=== PATIENT | male | born 1940 | race Caucasian/White ===

== ENCOUNTER 2023-03-04 21:23 | Outpatient (CLI) | payer SELFPAY | END 2023-03-04 21:24 | disposition EMS.NT | LOC: EMS 21:23 | DX: R55 Syncope and collapse (principal); R06.00 Dyspnea, unspecified ==

== ENCOUNTER 2025-09-17 18:49 | Inpatient (IN) ==
--- OUTSIDE RECORDS SUMMARY | 2025-09-17 18:59 | EXTERNAL MEDICAL SUMMARY RPT | Continuity of Care Document ---
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 Role Phone Unavailable Unavailable Unavailable Mario Snow Unavailable Unavailable Allergies and Intolerances date description facility reaction severity 2025-07-06 18:17:56 UNK [facility] (no reactio n) (no severity) Medications date description facility 2025-07-10 00:00 Apixaban [facility] 2025-07-12 00:00 Doxycycline Hyclate [facility] ital 2025-07-11 00:00 Furosemide [facility] 2025-07-11 00:00 Tamsulosin [facility] 2025-07-11 00:00 Metoprolol Succinate [facility] Problems date description facility 2025-07-07 00:00 Leukocytosis [facility] 2025-07-07 00:00 Acute hyponatremia [facility] 2025-07-07 00:00 Atrial fibrillation with rapid ventricular response [facility] 2025-07-07 00:00 Urinary tract infection [facility] 2025-07-07 00:00 Generalized weakness [facility] 2025-07-07 09:13 Unspecified atrial fibrillation [facility] 2025-07-07 09:17 Unspecified atrial fibrillation [facility] 2025-07-07 09:36 Unspecified atrial fibrillation [facility] 2025-07-07 09:37 Unspecified atrial fibrillation [facility] 2025-07-07 12:10 Unspecified atrial fibrillation [facility] 2025-07-07 14:23 Unspecified atrial fibrillation [facility] 2025-07-07 14:34 Unspecified atrial fibrillation [facility] 2025-07-08 10:48 Procedure and treatm ent not carried out due to patient leaving prior to being seen by health care provider [facility] 2025-07-09 14:49 Unspecified atrial fibrillation [facility] 2025-07-11 12:48 Unspecified atrial fibrillation [facility] 2025-07-12 13:45 Unspecified atrial fibrillation [facility] 2025-07-13 10:43 Unspecified atrial fibrillation [facility] 2025-08-12 10:21 Unspecified atrial fibrillation [facility] Procedures date description facility 2025-07-06 00:00 Blood culture [facility] 2025-07-06 00:00 X-ray of chest, single view [facility] 2025-07-08 00:00 Complete Doppler echocardiograp hy [facility] Results/Labs test date facility value unit notes Result panel 1 Specimen collection (procedure) (no date) [facility] (missing) (missing) (missing) Result panel 2 Specimen collection (procedure) (no date) [facility] (missing) (missing) (missing) Result panel 3 Specimen collection (procedure) (no date) [facility] (missing) (missing) (missing) Result panel 4 Specimen collection (procedure) (no date) [facility] (missing) (missing) (missing) Result panel 5 Specimen collection (procedure) (no date) [facility] (missing) (missing) (missing) Result panel 6 Specimen collection (procedure) (no date) [facility] (missing) (missing) (missing) Result panel 7 Specimen collection (procedure) (no date) [facility] (missing) (missing) (missing) Result panel 8 Specimen collection (procedure) (no date) [facility] (missing) (missing) (missing) Result panel 9 Specimen collection (procedure) (no date) [facility] (missing) (missing) (missing) Result panel 10 Specimen collection (procedure) (no date) [facility] (missing) (missing) (missing) Result panel 11 Specimen collection (procedure) (no date) [facility] (missing) (missing) (missing) Result panel 12 Specimen collection (procedure) (no date) [facility] (missing) (missing) (missing) Result panel 13 Specimen collection (procedure) (no date) [facility] (missing) (missing) (missing) Result panel 14 Specimen collection (procedure) (no date) [facility] (missing) (missing) (missing) Result panel 15 Specimen collection (procedure) (no date) [facility] (missing) (missing) (missing) Result panel 16 Specimen collection (procedure) (no date) [facility] (missing) (missing) (missing) Result panel 17 Specimen collection (procedure) (no date) [facility] (missing) (missing) (missing) Result panel 18 Specimen collection (procedure) (no date) [facility] (missing) (missing) (missing) Result panel 19 Specimen collection (procedure) (no date) [facility] (missing) (missing) (missing) Result panel 20 Specimen collection (procedure) (no date) [facility] (missing) (missing) (missing) Result panel 21 Specimen collection (procedure) (no date) [facility] (missing) (missing) (missing) Result panel 22 Specimen collection (procedure) (no date) [facility] (missing) (missing) (missing) Result panel 23 Specimen collection (procedure) (no date) [facility] (missing) (missing) (missing) Result panel 24 Specimen collection (procedure) (no date) [facility] (missing) (missing) (missing) Result panel 25 Specimen collection (procedure) (no date) [facility] (missing) (missing) (missing) Result panel 26 Specimen collection (procedure) (no date) [facility] (missing) (missing) (missing) Result panel 27 Specimen collection (procedure) (no date) [facility] (missing) (missing) (missing) Result panel 28 Specimen collection (procedure) (no date) [facility] (missing) (missing) (missing) Result panel 29 Specimen collection (procedure) (no date) [facility] (missing) (missing) (missing) Result panel 30 Specimen collection (procedure) (no date) [facility] (missing) (missing) (missing) Result panel 31 Specimen collection (procedure) (no date) [facility] (missing) (missing) (missing) Result panel 32 Specimen collection (procedure) (no date) [facility] (missing) (missing) (missing) Result panel 33 Specimen collection (procedure) (no date) [facility] (missing) (missing) (missing) Result panel 34 Specimen collection (procedure) (no date) [facility] (missing) (missing) (missing) Result panel 35 Specimen collection (procedure) (no date) [facility] (missing) (missing) (missing) Result panel 36 Specimen collection (procedure) (no date) [facility] (missing) (missing) (missing) Result panel 37 Specimen collection (procedure) (no date) [facility] (missing) (missing) (missing) Result panel 38 Specimen collection (procedure) (no date) [facility] (missing) (missing) (missing) Result panel 39 Specimen collection (procedure) (no date) [facility] (missing) (missing) (missing) Result panel 40 Specimen collection (procedure) (no date) [facility] (missing) (missing) (missing) Result panel 41 Specimen collection (procedure) (no date) [facility] (missing) (missing) (missing) Result panel 42 Specimen collection (procedure) (no date) [facility] (missing) (missing) (missing) Result panel 43 Specimen collection (procedure) (no date) [facility] (missing) (missing) (missing) Result panel 44 Specimen collection (procedure) (no date) [facility] (missing) (missing) (missing) Result panel 45 Specimen collection (procedure) (no date) [facility] (missing) (missing) (missing) Result panel 46 Specimen collection (procedure) (no date) [facility] (missing) (missing) (missing) Result panel 47 Specimen collection (procedure) (no date) [facility] (missing) (missing) (missing) Result panel 48 Specimen collection (procedure) (no date) [facility] (missing) (missing) (missing) Result panel 49 Specimen collection (procedure) (no date) [facility] (missing) (missing) (missing) Result panel 50 Specimen collection (procedure) (no date) [facility] (missing) (missing) (missing) Result panel 51 Specimen collection (procedure) (no date) [facility] (missing) (missing) (missing) Result panel 52 Specimen collection (procedure) (no date) [facility] (missing) (missing) (missing) Result panel 53 Specimen collection (procedure) (no date) [facility] (missing) (missing) (missing) Result panel 54 Specimen collection (procedure) (no date) [facility] (missing) (missing) (missing) Result panel 55 Specimen collection (procedure) (no date) [facility] (missing) (missing) (missing) Result panel 56 Specimen collection (procedure) (no date) [facility] (missing) (missing) (missing) Result panel 57 Specimen collection (procedure) (no date) [facility] (missing) (missing) (missing) Result panel 58 Specimen collection (procedure) (no date) [facility] (missing) (missing) (missing) Result panel 59 Specimen collection (procedure) (no date) [facility] (missing) (missing) (missing) Result panel 60 Specimen collection (procedure) (no date) [facility] (missing) (missing) (missing) Result panel 61 Specimen collection (procedure) (no date) [facility] (missing) (missing) (missing) Result panel 62 Specimen collection (procedure) (no date) [facility] (missing) (missing) (missing) Result panel 63 Specimen collection (procedure) (no date) [facility] (missing) (missing) (missing) Result panel 64 Specimen collection (procedure) (no date) [facility] (missing) (missing) (missing) Result panel 65 Specimen collection (procedure) (no date) [facility] (missing) (missing) (missing) Result panel 66 Specimen collection (procedure) (no date) [facility] (missing) (missing) (missing) Result panel 67 Specimen collection (procedure) (no date) [facility] (missing) (missing) (missing) Result panel 68 Specimen collection (procedure) (no date) [facility] (missing) (missing) (missing) Result panel 69 Specimen collection (procedure) (no date) [facility] (missing) (missing) (missing) Result panel 70 Specimen collection (procedure) (no date) [facility] (missing) (missing) (missing) Result panel 71 Specimen collection (procedure) (no date) [facility] (missing) (missing) (missing) Result panel 72 Specimen collection (procedure) (no date) [facility] (missing) (missing) (missing) Result panel 73 Specimen collection (procedure) (no date) [facility] (missing) (missing) (missing) Result panel 74 Specimen collection (procedure) (no date) [facility] (missing) (missing) (missing) Result panel 75 Specimen collection (procedure) (no date) [facility] (missing) (missing) (missing) Result panel 76 Specimen collection (procedure) (no date) [facility] (missing) (missing) (missing) Result panel 77 Specimen collection (procedure) (no date) [facility] (missing) (missing) (missing) Result panel 78 Specimen collection (procedure) (no date) [facility] (missing) (missing) (missing) Result panel 79 Specimen collection (procedure) (no date) [facility] (missing) (missing) (missing) Result panel 80 Specimen collection (procedure) (no date) [facility] (missing) (missing) (missing) Result panel 81 Specimen collection (procedure) (no date) [facility] (missing) (missing) (missing) Result panel 82 Specimen collection (procedure) (no date) [facility] (missing) (missing) (missing) Result panel 83 Specimen collection (procedure) (no date) [facility] (missing) (missing) (missing) Result panel 84 Specimen collection (procedure) (no date) [facility] (missing) (missing) (missing) Result panel 85 Specimen collection (procedure) (no date) [facility] (missing) (missing) (missing) Result panel 86 Specimen collection (procedure) (no date) [facility] (missing) (missing) (missing) Result panel 87 Specimen collection (procedure) (no date) [facility] (missing) (missing) (missing) Result panel 88 Specimen collection (procedure) (no date) [facility] (missing) (missing) (missing) Result panel 89 Specimen collection (procedure) (no date) [facility] (missing) (missing) (missing) Result panel 90 Specimen collection (procedure) (no date) [facility] (missing) (missing) (missing) Result panel 91 Specimen collection (procedure) (no date) [facility] (missing) (missing) (missing) Result panel 92 Specimen collection (procedure) (no date) [facility] (missing) (missing) (missing) Result panel 93 Specimen collection (procedure) (no date) [facility] (missing) (missing) (missing) Result panel 94 Specimen collection (procedure) (no date) [facility] (missing) (missing) (missing) Result panel 95 Specimen collection (procedure) (no date) [facility] (missing) (missing) (missing) Result panel 96 Specimen collection (procedure) (no date) [facility] (missing) (missing) (missing) Result panel 97 Specimen collection (procedure) (no date) [facility] (missing) (missing) (missing) Result panel 98 Specimen collection (procedure) (no date) [facility] (missing) (missing) (missing) Result panel 99 Specimen collection (procedure) (no date) [facility] (missing) (missing) (missing) Result panel 100 Specimen collection (procedure) (no date) [facility] (missing) (missing) (missing) Result panel 101 Specimen collection (procedure) (no date) [facility] (missing) (missing) (missing) Result panel 102 Specimen collection (procedure) (no date) [facility] (missing) (missing) (missing) Result panel 103 Specimen collection (procedure) (no date) [facility] (missing) (missing) (missing) Result panel 104 Specimen collection (procedure) (no date) [facility] (missing) (missing) (missing) Result panel 105 Specimen collection (procedure) (no date) [facility] (missing) (missing) (missing) Result panel 106 Specimen collection (procedure) (no date) [facility] (missing) (missing) (missing) Result panel 107 Specimen collection (procedure) (no date) [facility] (missing) (missing) (missing) Result panel 108 Specimen collection (procedure) (no date) [facility] (missing) (missing) (missing) Result panel 109 Specimen collection (procedure) (no date) [facility] (missing) (missing) (missing) Result panel 110 Specimen collection (procedure) (no date) [facility] (missing) (missing) (missing) Result panel 111 Specimen collection (procedure) (no date) [facility] (missing) (missing) (missing) Result panel 112 Specimen collection (procedure) (no date) [facility] (missing) (missing) (missing) Result panel 113 Specimen collection (procedure) (no date) [facility] (missing) (missing) (missing) Result panel 114 Specimen collection (procedure) (no date) [facility] (missing) (missing) (missing) Result panel 115 Specimen collection (procedure) (no date) [facility] (missing) (missing) (missing) Result panel 116 Specimen collection (procedure) (no date) [facility] (missing) (missing) (missing) Result panel 117 Specimen collection (procedure) (no date) [facility] (missing) (missing) (missing) Result panel 118 Specimen collection (procedure) (no date) [facility] (missing) (missing) (missing) Result panel 119 Specimen collection (procedure) (no date) [facility] (missing) (missing) (missing) Result panel 120 Specimen collection (procedure) (no date) [facility] (missing) (missing) (missing) Result panel 121 Magnesium [Mass/volume] in Serum or Plasma 2025-07-06 19:06:07 [facility] 1.7 mg[facility] Result panel 122 Bilirubin.total [Mass/volume ] in Serum or Plasma 2025-07-06 19:06:07 [facility] 2.2 mg/dL (missing) Result panel 123 Aspartate aminotransferase [Enzymatic activity/volume] in Serum or Plasma 2025-07-06 19:06:07 [facility] 43 IU/L [facility] Result panel 124 Alanine aminotransferase [Enzymatic activity/volume] in Serum or Plasma 2025-07-06 19:06:07 [facility] 15 IU/L [facility] Result panel 125 Alkaline phosphatase [Enzyma tic activity/volume] in Serum or Plasma 2025-07-06 19:06:07 [facility] 94 U/L ([facility]) Result panel 126 Protein total ser/plas 2025-07-06 19:06:07 [facility] 7 .7 g/dL (missing) Result panel 127 Albumin [Mass/volume] in Ser um or Plasma 2025-07-06 19:06:07 [facility] 4.1 g/dL ([facility]) Result panel 128 Globulin [Mass/volume] in Serum by calculation 2025-07-06 19:06:07 [facility] 3.6 g/dL (missing) Result panel 129 Albumin/Globulin [Mass Ratio] in Serum or Plasma 2025-07-06 19:06:07 [facility] 1.1 ([facility]) (missing) Result panel 130 Lipase [Enzymatic activity/volume] in Serum or Plasma 2025-07-06 19:06:07 [facility] 29 U/L ([facility]) Result panel 131 Influenza virus A RNA [Presence] in Upper respiratory specimen by RASHIDA with probe dete 2025-07-06 19:06:07 [facility] Flu a negative (missing) (missing) Result panel 132 Influenza virus B RNA [Presence] in Upper respiratory specimen by RASHIDA with probe dete 2025-07-06 19:06:07 [facility] Flu b negative (missing) (missing) Result panel 133 Respiratory syncytial virus RNA [Presence] in Nasopharynx by RASHIDA with probe detection 2025-07-06 19:06:07 [facility] Negative (missing) (missing) Result panel 134 White blood cell count 2025-07-06 19:06:07 [facility] 1 3.7 X10^3/uL (missing) Result panel 135 Red blood cell count 2025-07-06 19:06:07 [facility] 4.5 7 X10^6/uL (missing) Result panel 136 Hemoglobin 2025-07-06 19:06:07 [facility] 12.5 g/d L (missing) Result panel 137 Hematocrit 2025-07-06 19:06:07 [facility] 37.4 % (missing) Result panel 138 MCV (mean corpuscular volume ) determination 2025-07-06 19:06:07 [facility] 81.8 fL (mis sing) Result panel 139 Mean corpuscular hemoglobin (MCH) determination 2025-07-06 19:06:07 [facility] 27.4 PG (missing) Result panel 140 Mean corpuscular hemoglobin concentration (MCHC) determination 2025-07-06 19:06:07 [facility] 33.5 % (mis sing) Result panel 141 Red cell distribution width determination 2025-07-06 19:06:07 [facility] 21.4 % (mis sing) Result panel 142 Platelet count 2025-07-06 19:06:07 [facility] TNP (missing) (missing) Result panel 143 Automated neutrophil % 2025-07-06 19:06:07 [facility] 8 5.4 % (missing) Result panel 144 Automated lymphocyte % 2025-07-06 19:06:07 [facility] 5 .1 % (missing) Result panel 145 Automated monocyte % 2025-07-06 19:06:07 [facility] 9.3 % (missing) Result panel 146 Automated eosinophil % 2025-07-06 19:06:07 [facility] 0 .0 % (missing) Result panel 147 Automated basophil % 2025-07-06 19:06:07 [facility] 0.2 % (missing) Result panel 148 Absolute neutrophil count 2025-07-06 19:06:07 [facility] l 87494 /uL (missing) Result panel 149 Absolute lymphocyte count 2025-07-06 [facility] ([facility] Result panel 150 Automated blood monocyte count 2025-07-06 19:06:07 [facility] 1300 /uL (missing) Result panel 151 Automated eosinophil count 2025-07-06 [facility]:06[facility] ([facility] Result panel 152 Automated basophil count 2025-07-06 19:06:07 [facility] 0 /uL (missing) Result panel 153 Platelet estimate 2025-07-06 19:06:07 [facility] Adequate on smear (missing) (missing) Result panel 154 RBC morphology 2025-07-06 19:06:07 [facility] See below (missing) (missing) Result panel 155 Blood anisocytosis detection 2025-07-06 19:06:07 [facility] 2+ (missing) (miss ing) Result panel 156 Sodium [Moles/volume] in Serum or Plasma 2025-07-06 19:06:07 [facility] 125 mmol/L (m issing) Result panel 157 Potassium [Moles/volume] in Serum or Plasma 2025-07-06 19:06:07 [facility] 4.2 mmol/L ([facility]) Result panel 158 Chloride [Moles/volume] in Serum or Plasma 2025-07-06 19:06:07 [facility] 99 mmol/L ([facility] Result panel 159 Carbon dioxide, total [Moles/volume] in Serum or Plasma 2025-07-06 19:06:07 [facility] 17 mmol/L ([facility]) Result panel 160 Urea nitrogen [Mass/volume] in Serum or Plasma 2025-07-06 19:06:07 [facility] 26 mg/dL ([facility] Result panel 161 Creatinine [Mass/volume] in Serum or Plasma 2025-07-06 19:06:07 [facility] 1.21 mg/dL ([facility]) Result panel 162 Glomerular filtration rate (GFR) estimation 2025-07-06 19:06:07 [facility] 59 mL/min ( missing) Result panel 163 BUN/creatinine ratio 2025-07-06 19:06:07 [facility] 21. 5 (missing) (missing) Result panel 164 Glucose [Mass/volume] in Serum or Plasma 2025-07-06 19:06:07 [facility] 120 mg/dL ([facility]) Result panel 165 Calcium [Mass/volume] in Serum or Plasma 2025-07-06 19:06:07 [facility] 10.0 mg/dL ([facility]) Result panel 166 Magnesium [Mass/volume] in Serum or Plasma 2025-07-06 19:06:07 [facility] 1.7 mg/dL ([facility]) Result panel 167 Bilirubin.total [Mass/volume ] in Serum or Plasma 2025-07-06 19:06:07 [facility] 2.2 mg/dL (missing) Result panel 168 Aspartate aminotransferase [Enzymatic activity/volume] in Serum or Plasma 2025-07-06 19:06:07 [facility] 43 IU/L ([facility] Result panel 169 Alanine aminotransferase [Enzymatic activity/volume] in Serum or Plasma 2025-07-06 19:06:07 [facility] 15 IU/L ([facility] Result panel 170 Alkaline phosphatase [Enzyma tic activity/volume] in Serum or Plasma 2025-07-06 19:06:07 [facility] 94 U/L ([facility]) Result panel 171 Protein total ser/plas 2025-07-06 19:06:07 [facility] 7 .7 g/dL (missing) Result panel 172 Albumin [Mass/volume] in Ser um or Plasma 2025-07-06 19:06:07 [facility] 4.1 g/dL ([facility]) Result panel 173 Globulin [Mass/volume] in Serum by calculation 2025-07-06 19:06:07 [facility] 3.6 g/dL (missing) Result panel 174 Albumin/Globulin [Mass Ratio] in Serum or Plasma 2025-07-06 19:06:07 [facility] 1.1 ([facility]) (missing) Result panel 175 Lipase [Enzymatic activity/volume] in Serum or Plasma 2025-07-06 19:06:07 [facility] 29 U/L ([facility]) Result panel 176 Influenza virus A RNA [Presence] in Upper respiratory specimen by RASHIDA with probe dete 2025-07-06 19:06:07 [facility] Flu a negative (missing) (missing) Result panel 177 Influenza virus B RNA [Presence] in Upper respiratory specimen by RASHIDA with probe dete 2025-07-06 19:06:07 [facility] Flu b negative (missing) (missing) Result panel 178 Respiratory syncytial virus RNA [Presence] in Nasopharynx by RASHIDA with probe detection 2025-07-06 19:06:07 [facility] Negative (missing) (missing) Result panel 179 Albumin Globulin Ratio 2025-07-06 19:42 [facility] 1.1 (missing) (missing) Creatinine 2025-07-06 19:42 [facility] 1.21 mg/dl (missing) Calcium 2025-07-06 19:[address] [place] [address] 10.0 mg/dl (missing) Glucose 2025-07-06 19:42 [facility] 120 mg/dl (missing) Sodium 2025-07-06 19:42 [facility] 125 mmol/l (missing) Alanine Aminotransferase 2025-07-06 19:[address] [place] [address] 15 iu/l (missing) Carbon Dioxide 2025-07-06 19:[address] [place] [address] 17 mmol/l (missing) Bilirubin Total 2025-07-06 19:42 [facility] 2.2 mg/dl (missing) BUN Creatinine Ratio 2025-07-06 19:[address] [place] [address] 21.5 (missing) (missing) Blood Urea Nitrogen 2025-07-06 19:42 [facility] 26 mg/dl (missing) Lipase 2025-07-06 19:42 [facility] 29 u/l (missing) Globulin 2025-07-06 19:42 [facility] 3.6 g/dl (missing) Albumin 2025-07-06 19:42 [facility] 4.1 g/dl (missing) Potassium 2025-07-06 19:42 [facility] 4.2 mmol/l (missing) Aspartate Aminotransferase 2025-07-06 19:42 [facility] 43 iu/l (missing) Estimated Glomerular Filt Rate 2025-07-06 19:42 [facility] 59 ml/min Reported eGFR is based the CKD-EPI 2020 equation that does not use a race coefficient. An eGFR below 60 mL/min/1.73m2 suggests that some kidney damage has occurred, and indicative of chronic kidney disease if persisting greater than 3 months. An eGFR less than 15 is indicative of kidney failure. Total Protein 2025-07-06 19:42 [facility] 7.7 g/dl (missing) Alkaline Phosphatase 2025-07-06 19:42 [facility] 94 u/l (missing) Chloride 2025-07-06 19:42 [facility] 99 mmol/l (missing) Result panel 180 Basophils Absolute Auto 2025-07-06 19:47 [facility] 0 /ul (missing) Eosinophils Absolute Auto 2025-07-06 19:47 [facility] 0 /ul (missing) Eosinophils Percent Auto 2025-07-06 19:47 [facility] 0.0 % (missing) Basophils Percent Auto 2025-07-06 19:47 [facility] 0.2 % (missing) Neutrophils Absolute Auto 2025-07-06 19:47 [facility] [address] /ul (missing) Hemoglobin 2025-07-06 19:47 [facility] 12.5 g/dl (missing) White Blood Cell Count 2025-07-06 19:47 [facility] 13.7 x10 3/ul (missing) Monocytes Absolute Auto 2025-07-06 19:47 [facility] 1300 /ul (missing) Red Cell Distribution Width 2025-07-06 19:47 [facility] 21.4 % (missing) Mean Corpuscular Hemoglobin 2025-07-06 19:47 [facility] 27.4 pg (missing) Mean Corpuscular HGB Conc 2025-07-06 19:47 [facility] 33.5 % (missing) Hematocrit 2025-07-06 19:[address] [place] [address] 37.4 % (missing) Red Blood Cell Count 2025-07-06 19:47 [facility] 4.57 x10 6/ul (missing) Lymphocytes Percent Auto 2025-07-06 19:47 [facility] 5.1 % (missing) Lymphocytes Absolute Auto 2025-07-06 19:47 [facility] 700 /ul (missing) Mean Corpuscular Volume 2025-07-06 19:47 [facility] 81.8 fl (missing) Neutrophils Percent Auto 2025-07-06 19:47 [facility] 85.4 % (missing) Monocytes Percent Auto 2025-07-06 19:47 [facility] 9.3 % (missing) Platelet Count 2025-07-06 19:47 [facility] Test not performed x10 3/ul PLATELETS CLUMPED WITH FIBRIN STRANDS PRESENT, SLIDE REVIEW REFLECTS ADEQUATE QUANTITY. Result panel 181 Basophils Absolute Auto 2025-07-06 19:48 [facility] 0 /ul (missing) Eosinophils Absolute Auto 2025-07-06 19:48 [facility] 0 /ul (missing) Eosinophils Percent Auto 2025-07-06 19:48 [facility] 0.0 % (missing) Basophils Percent Auto 2025-07-06 19:48 [facility] 0.2 % (missing) Neutrophils Absolute Auto 2025-07-06 19:48 [facility] [address] /ul (missing) Hemoglobin 2025-07-06 19:48 [facility] 12.5 g/dl (missing) White Blood Cell Count 2025-07-06 19:48 [facility] 13.7 x10 3/ul (missing) Monocytes Absolute Auto 2025-07-06 19:48 [facility] 1300 /ul (missing) Anisocytosis 2025-07-06 19:48 [facility] 2 (missing ) (missing) Red Cell Distribution Width 2025-07-06 19:48 [facility] 21.4 % (missing) Mean Corpuscular Hemoglobin 2025-07-06 19:48 [facility] 27.4 pg (missing) Mean Corpuscular HGB Conc 2025-07-06 19:48 [facility] 33.5 % (missing) Hematocrit 2025-07-06 19:48 [facility] 37.4 % (missing) Red Blood Cell Count 2025-07-06 19:48 [facility] 4.57 x10 6/ul (missing) Lymphocytes Percent Auto 2025-07-06 19:48 [facility] 5.1 % (missing) Lymphocytes Absolute Auto 2025-07-06 19:48 [facility] 700 /ul (missing) Mean Corpuscular Volume 2025-07-06 19:48 [facility] 81.8 fl (missing) Neutrophils Percent Auto 2025-07-06 19:48 [facility] 85.4 % (missing) Monocytes Percent Auto 2025-07-06 19:48 [facility] 9.3 % (missing) Platelet Estimate 2025-07-06 19:48 [facility] Adequate on smear (missing ) (missing) RBC Morphology 2025-07-06 19:48 [facility] See Below (missing ) (missing) Platelet Count 2025-07-06 19:48 [facility] Test not performed x10 3/ul PLATELETS CLUMPED WITH FIBRIN STRANDS PRESENT, SLIDE REVIEW REFLECTS ADEQUATE QUANTITY. Result panel 182 Influenza A - CEPHEID 2025-07-06 20:17 [facility] Flu A NEGATIVE (missing) (missing) Influenza B - CEPHEID 2025-07-06 20:17 [facility] Flu B NEGATIVE (missing) (missing) Respiratory Syncytial Virus 2025-07-06 20:17 [facility] Negative (missing) (missing) COVID-19 CEPHEID 4-PLEX PCR 2025-07-06 20:[address] [place] [address] Negative (missing) The Xpert Xpress SARS-CoV-2 test is a rapid, real-time RT-PCR test intended for the qualitative detection of nucleic acid from the SARS-CoV-2 in either nasopharyngeal, nasal, or mid-turbinate swab and/or nasal wash/ aspirate specimens collected from individuals suspected of COVID-19 by their healthcare provider. Results are for the detection of SARS-CoV-2 RNA. The SARS-CoV-2 RNA is generally detectable in upper respiratory specimens during the acute phase of infection. Positive results are indicative of active infection with SARS-CoV-2; clinical correlation with patient history and other diagnostic information is necessary to determine patient infection status. Positive results do not rule out bacterial infection or co-infection with other viruses. The agent detected may not be the definite cause of disease. Negative results do not preclude SARS-CoV-2 infection and should not be used as the sole basis for treatment or other patient management decisions. Negative results must be combined with clinical observations, patient history, and epidemiological information. The Xpert Xpress SARS-CoV-2 test is only for use under the Food and Drug Administrations Emergency Use Authorization. Result panel 183 Natriuretic peptide.B prohormone N-Terminal [Mass/volume] in Serum or Plasma 2025-07-06 21:22:07 [facility] 5480 pg/mL (miss ing) Result panel 184 Natriuretic peptide.B prohormone N-Terminal [Mass/volume] in Serum or Plasma 2025-07-06 21:22:07 [facility] 5480 pg/mL (miss ing) Result panel 185 Magnesium 2025-07-06 21:33 [facility] 1.7 mg/dl (missing) Result panel 186 Microscopic analysis of urine for red blood cells (RBC) 2025-07-06 21:50:07 [facility] 1-5/hpf (missing) (missing) Result panel 187 Microscopic analysis of urine for white blood cells (WBC) 2025-07-06 21:50:07 [facility] 30-100/hpf (missing) (missing) Result panel 188 Urine squamous epithelial cell detection 2025-07-06 21:50:07 [facility] 0-1 /hpf (missing) (miss ing) Result panel 189 Microscopic analysis of urine for red blood cells (RBC) 2025-07-06 21:50:07 [facility] 1-5/hpf (missing) (missing) Result panel 190 Microscopic analysis of urine for white blood cells (WBC) 2025-07-06 21:50:07 [facility] 30-100/hpf (missing) (missing) Result panel 191 Urine squamous epithelial cell detection 2025-07-06 21:50:07 [facility] 0-1 /hpf (missing) (miss ing) Result panel 192 Procalcitonin [Mass/volume] in Serum or Plasma 2025-07-06 22:04:07 [facility] 0.642 ng/mL (missing) Result panel 193 Troponin I.cardiac [Mass/volume] in Serum or Plasma 2025-07-06 22:04:07 [facility] 0.057 ng/mL (miss ing) Result panel 194 C reactive protein [Mass/volume] in Serum or Plasma 2025-07-06 22:04:07 [facility] 7.1 mg/dL (miss ing) Result panel 195 Procalcitonin [Mass/volume] in Serum or Plasma 2025-07-06 22:04:07 [facility] 0.642 ng/mL (missing) Result panel 196 Squamous Epithelial Cell Urine 2025-07-06 22:13 [facility] 0-1 /HPF (missing) (missing) RBC Urine 2025-07-06 22:13 [facility] 1-5/HPF (missing) (missing) Urine Volume 2025-07-06 22:13 [facility] 10mL (spun) (missing) Urine Source: Urine, Random Culture if Indicated? Y WBC Urine 2025-07-06 22:13 [facility] 30-100/HPF (missing) (missing) Bacteria Urine 2025-07-06 22:13 [facility] Many (>30) (missing) (missing) Culture Indicated Urine 2025-07-06 22:13 [facility] Specimen Cultured (missing) (missing) Result panel 197 Troponin I 2025-07-06:18 [facility] 0.062 ng/ml Ortho Troponin-I Recommended Upper Reference Range & Cutoff The 99th Percentile URL: 0.034 ng/mL AMI Diagnostic Cutoff: 0.120 ng/mL NT-proBNP (BNP-Adult 18+) 2025-07-06 22:18 [facility] 5480 pg/ml The f taoing cut-points have been suggested for the use of proBNP for the diagnostic evaluation of heart failure (HF) in patients with acute dyspnea: Modality Age in Years Optimal Cut-Off -------- Heart Failure Unlikely: Exclusion Age Independent 300 pg/mL Heart Failure Likely: Diagnostic <50 450 pg/mL 50-75 900 pg/mL >75 1800 pg/mL The 300 pg/mL age-independent rule-out cutoff can be used to identify ED patients in whom HF (heart failuire) is unlikely and who need further investigations for non-cardiac causes of dyspnea. The natriuretic peptides values increase with age, therefore, applying age-dependent rule-in cutoffs (450, 900, and 1800 pg/mL) increases the specificity and positive predictive value for diagnosing patients in whom HF is likely. As mild natriuretic peptides elevations can be caused by non-HF conditions, VITROS NT-proBNP II test results between the exclusion and the diagnosis cutoffs should be considered in the context of the clinical presentation and physical examination in order to correctly identify or exclude HF. Result panel 198 Lactate (Lactic Acid) 2025-07-06 22:26 [facility] 2.1 mmol/l Yes/No query for Sepsis Lactate Rule Y Result panel 199 C-Reactive Protein Quant 2025-07-06 22:36 [facility] 7. 1 mg/dl (missing) Result panel 200 X-ray report 2025-07-06 22:49 [facility] (missing) (mis sing) (missing) Result panel 201 X-ray report 2025-07-06 22:49 [facility] (missing) (mis sing) (missing) Result panel 202 Blood culture 2025-07-06 22:58:07 [facility] NO G ROWTH AFTER 5 DAYS (missing) (missing) Result panel 203 Blood culture 2025-07-06 23:00:07 [facility] NO G ROWTH AFTER 5 DAYS (missing) (missing) Result panel 204 Troponin I 2025-07-06 23:01 [facility] 0.057 ng/ml Ortho Troponin-I Recommended Upper Reference Range & Cutoff The 99th Percentile URL: 0.034 ng/mL AMI Diagnostic Cutoff: 0.120 ng/mL Procalcitonin 2025-07-06 23:01 [facility] 0.642 ng/ ml <0.5 ng/mL Systemic infection (sepsis) not likely >0.5- <2.0 ng/mL Systemic infection possible and should be correlated with patient's clinical condition. >2.0 - <10.0 ng/mL Systemic infection is likely. High risk for progression to sever sepsis/ or septic shock. >10.0 ng/mL Important systemic inflammoratory response, almost exclusively due to severe bacterial sepsis or septic shock. Lower Respiratory Tract Infection: <0.1 ng/mL Indicates absence of bacterial infection. >=0.1- <0.25 ng/mL Bacterial infection unlikely >=0.25- <0.5 ng/mL Bacterial infection possible >=0.5 ng/mL Suggests the presence of bacterial infection. Neonates <48 hours old have increased PCT levels without corresponding to sepsis. Result panel 205 Lactate [Mass/volume] in Serum or Plasma 2025-07-06 23:30:07 [facility] 1.1 mmol/L (m issing) Result panel 206 Lactate [Mass/volume] in Serum or Plasma 2025-07-06 23:30:07 [facility] 1.1 mmol/L (m issing) Result panel 207 Lactate 2HR (Lactic Acid Rflx) 2025-07-07 00:01 [facility] 1.1 mmol/l (missing) Result panel 208 Emergency department note 2025-07-07 00:14 [facility] (missing) (missing) (missing ) Result panel 209 Emergency department note 2025-07-07 00:14 [facility] (missing) (missing) (missing ) Result panel 210 Troponin I 2025-07-07 07:40 [facility] 0.072 ng/ml Ortho Troponin-I Recommended Upper Reference Range & Cutoff The 99th Percentile URL: 0.034 ng/mL AMI Diagnostic Cutoff: 0.120 ng/mL Result panel 211 Troponin I.cardiac [Mass/volume] in Serum or Plasma 2025-07-07 10:05:07 [facility] 0.060 ng/mL (miss ing) Result panel 212 Troponin I 2025-07-07 10:47 [facility] 0.060 ng/ml Ortho Troponin-I Recommended Upper Reference Range & Cutoff The 99th Percentile URL: 0.034 ng/mL AMI Diagnostic Cutoff: 0.120 ng/mL Result panel 213 Blood Culture 2025-07-07 23:10 [facility] (missing) (de ssing) (missing) Blood Culture 2025-07-07 23:10 [facility] NO GROW TH AFTER 24 HOURS (missing) (missing) Result panel 214 Blood Culture 2025-07-07 23:12 [facility] (missing) (de ssing) (missing) Blood Culture 2025-07-07 23:12 [facility] NO GROW TH AFTER 24 HOURS (missing) (missing) Result panel 215 Platelet estimate 2025-07-08 04:33:07 [facility] Adequate on smear (missing) (missing) Result panel 216 RBC morphology 2025-07-08 04:33:07 [facility] See below (missing) (missing) Result panel 217 Blood anisocytosis detection 2025-07-08 04:33:07 [facility] 2+ (missing) (miss ing) Result panel 218 Macrocytes detection 2025-07-08 04:33:07 [facility] 1+ (missing) (missing) Result panel 219 Prostate specific Ag [Mass/volume] in Serum or Plasma 2025-07-08 04:33:07 [facility] 0.957 ng/mL (miss ing) Result panel 220 Basophils Percent Auto 2025-07-08 06:00 [facility] 0.5 % (missing) Eosinophils Percent Auto 2025-07-08 06:00 [facility] 0. 6 % (missing) White Blood Cell Count 2025-07-08 06:00 [facility] 10.3 x10 3/ul (missing) Basophils Absolute Auto 2025-07-08 06:00 [facility] 100 /ul (missing) Eosinophils Absolute Auto 2025-07-08 06:00 [facility] 1 00 /ul (missing) Hemoglobin 2025-07-08 06:00 [facility] 11.6 g/dl (missing) Monocytes Percent Auto 2025-07-08 06:00 [facility] 12.7 % (missing) Monocytes Absolute Auto 2025-07-08 06:00 [facility] 130 0 /ul (missing) Red Cell Distribution Width 2025-07-08 06:00 [facility] 21.5 % (missing) Platelet Count 2025-07-08 06:00 [facility] 232 x1 0 3/ul (missing) Mean Corpuscular Hemoglobin 2025-07-08 06:00 [facility] 27.5 pg (missing) Mean Corpuscular HGB Conc 2025-07-08 06:00 [facility] 3 4.0 % (missing) Hematocrit 2025-07-08 06:00 [facility] 34.1 % (missing) Red Blood Cell Count 2025-07-08 06:00 [facility] 4.21 x10 6/ul (missing) Neutrophils Percent Auto 2025-07-08 06:00 [facility] 77 .9 % (missing) Lymphocytes Percent Auto 2025-07-08 06:00 [facility] 8. 3 % (missing) Lymphocytes Absolute Auto 2025-07-08 06:00 [facility] 8 00 /ul (missing) Neutrophils Absolute Auto 2025-07-08 06:00 [facility] 8 000 /ul (missing) Mean Corpuscular Volume 2025-07-08 06:00 [facility] 81. 0 fl (missing) Result panel 221 Creatinine 2025-07-08 06:05 [facility] 1.36 mg/dl (missing) Glucose 2025-07-08 06:05 [facility] 124 mg/dl (missing) Sodium 2025-07-08 06:05 [facility] 126 mmol/l (missing) Carbon Dioxide 2025-07-08 06:05 [facility] 20 mm ol/l (missing) BUN Creatinine Ratio 2025-07-08 06:05 [facility] 22.1 (missing) (missing ) Potassium 2025-07-08 06:05 [facility] 3.6 mmol/l (missing) Blood Urea Nitrogen 2025-07-08 06:05 [facility] 30 mg/dl (missing) Estimated Glomerular Filt Rate 2025-07-08 06:05 [facility] 50 ml/min Reported eGFR is based the CKD-EPI 2020 equation that does not use a race coefficient. An eGFR below 60 mL/min/1.73m2 suggests that some kidney damage has occurred, and indicative of chronic kidney disease if persisting greater than 3 months. An eGFR less than 15 is indicative of kidney failure. Calcium 2025-07-08 06:05 [facility] 9.1 mg/dl (missing) Chloride 2025-07-08 06:05 [facility] 98 mmol/l (missing) Result panel 222 C-Reactive Protein Quant 2025-07-08 06:20 [facility] 10 .9 mg/dl (missing) Result panel 223 Basophils Percent Auto 2025-07-08 06:22 [facility] 0.5 % (missing ) Eosinophils Percent Auto 2025-07-08 06:22 [facility] 0.6 % (missing ) Macrocytosis 2025-07-08 06:22 [facility] 1 (mis sing) (missing) Microcytosis 2025-07-08 06:22 [facility] 1 (mis sing) (missing) White Blood Cell Count 2025-07-08 06:22 [facility] 10.3 x10 3/ul (missing ) Basophils Absolute Auto 2025-07-08 06:22 [facility] 100 /ul (missing ) Eosinophils Absolute Auto 2025-07-08 06:22 [facility] 100 /ul (missin g) Hemoglobin 2025-07-08 06:22 [facility] 11.6 g/dl (missing) Monocytes Percent Auto 2025-07-08:22 [facility] 12.7 % (missing ) Monocytes Absolute Auto 2025-07-08:22 [facility] 1300 /ul (missing ) Anisocytosis 2025-07-08 06:22 [facility] 2 (mis sing) (missing) Red Cell Distribution Width 2025-07-08 06:22 [facility] 21.5 % (m issing) Platelet Count 2025-07-08 06:22 [facility] 232 x1 0 3/ul (missing) Mean Corpuscular Hemoglobin 2025-07-08 06:22 [facility] 27.5 pg (missing ) Mean Corpuscular HGB Conc 2025-07-08 06:22 [facility] 34.0 % (missing ) Hematocrit 2025-07-08 06:22 [facility] 34.1 % (missing) Red Blood Cell Count 2025-07-08 06:22 [facility] 4.21 x10 6/ul (missing ) Neutrophils Percent Auto 2025-07-08 06:22 [facility] 77.9 % (missing ) Lymphocytes Percent Auto 2025-07-08 06:22 [facility] 8.3 % (missing ) Lymphocytes Absolute Auto 2025-07-08 06:22 [facility] 800 /ul (missin g) Neutrophils Absolute Auto 2025-07-08 06:22 [facility] 8000 /ul (missin g) Mean Corpuscular Volume 2025-07-08 06:22 [facility] 81.0 fl (missing ) Platelet Estimate 2025-07-08 06:22 [facility] [place] quate on smear (missing) (missing) RBC Morphology 2025-07-08 06:22 [facility] See Below (m issing) (missing) Result panel 224 Prostate Specific Antigen 2025-07-08 06:34 [facility] 0 .957 ng/ml (missing) Result panel 225 [place] Count 2025-07-08 07:27 [facility] >100,000 cfu/ml (missing) ORGANISM 2025-07-08 07:27 [facility] GNBGram negative bacilli (missing) (missing) Action to follow 2025-07-08 07:27 [facility] Identification and Sensitivity to Follow (missing) (missing) Result panel 226 Echocardiography report 2025-07-08 10:36 [facility] (mi ssing) (missing) (missing) Result panel 227 Blood Culture 2025-07-08 23:10 [facility] (missing) (mi ssing) (missing) Blood Culture 2025-07-08 23:10 [facility] NO GROW TH AFTER 48 HOURS (missing) (missing) Result panel 228 Blood Culture 2025-07-08 23:12 [facility] (missing) (mi ssing) (missing) Blood Culture 2025-07-08 23:12 [facility] NO GROW TH AFTER 48 HOURS (missing) (missing) Result panel 229 Urine Culture 2025-07-09 07:05 [facility] (missing) (missing) (missing) [place] Count 2025-07-09 07:05 [facility] >100,000 cfu/ml (missing) Ciprofloxacin 2025-07-09 07:05 [facility] >=4 (missing) (missing) Levofloxacin 2025-07-09 07:05 [facility] [facility] >=8 (missing) (missing) Ertapenem 2025-07-09 07:05 [facility] <=0.12 (missing) (missing) Ceftriaxone 2025-07-09 07:05 [facility] <=0.25 (missing) (missing) Meropenem 2025-07-09 07:05 [facility] <=0.25 (missing) (missing) Gentamicin 2025-07-09 07:05 [facility] <=1 (missing) (missing) Nitrofurantoin 2025-07-09 07:05 [facility] <=16 (missing) (missing) Cefepime E-test 2025-07-09 07:05 [facility] <=2 (missing) (missing) Trimethoprim/Sulfa methoxazole 2025-07-09 07:05 [facility] <=20 (missing) (missing) Piperacillin/Tazob actam 2025-07-09 07:05 [facility] <=4 (missing) (missing) Tetracycline 2025-07-09 07:05 [facility] 2 (missing) (missing) Amoxicillin/Clavul anate 2025-07-09 07:05 [facility] 4 (missing) (missing) Cefazolin 2025-07-09 07:05 [facility] 4 (missing) (missing) Ampicillin 2025-07-09 07:05 [facility] 8 (missing) (missing) ORGANISM 2025-07-09 07:05 [facility] ESCCOLEscherichia coli (missing) (missing) Urine Culture 2025-07-09 07:05 [facility] Isolates that test susceptible to tetracycline are (missing) (missing) Action to follow 2025-07-09 07:05 [facility] No Further Workup (missing) (missing) Urine Culture 2025-07-09 07:05 [facility] considered susceptible to doxycycline and minocycline. (missing) (missing) Result panel 230 Blood Culture 2025-07-09 23:10 [facility] (missing) (mi ssing) (missing) Blood Culture 2025-07-09 23:10 [facility] NO GROW TH AFTER 72 HOURS (missing) (missing) Result panel 231 Blood Culture 2025-07-09 23:12 [facility] (missing) (mi ssing) (missing) Blood Culture 2025-07-09 23:12 [facility] NO GROW TH AFTER 72 HOURS (missing) (missing) Result panel 232 Estimated Glomerular Filt Rate 2025-07-10 06:03 [facility] > 60 ml/min Reported eGFR is based the CKD-EPI 2021 equation that does not use a race coefficient. An eGFR below 60 mL/min/1.73m2 suggests that some kidney damage has occurred, and indicative of chronic kidney disease if persisting greater than 3 months. An eGFR less than 15 is indicative of kidney failure. Creatinine 2025-07-10 06:03 [facility] 1.14 mg/dl (missing) Glucose 2025-07-10 06:03 [facility] 127 mg/dl (missing) Sodium 2025-07-10 06:03 [facility] 130 mmol/l (missing) BUN Creatinine Ratio 2025-07-10 06:03 [facility] 24.6 (missing) (missing ) Carbon Dioxide 2025-07-10 06:03 [facility] 25 mm ol/l (missing) Blood Urea Nitrogen 2025-07-10 06:03 [facility] 28 mg/dl (missing ) Potassium 2025-07-10 06:03 [facility] 3.8 mmol/l (missing) C-Reactive Protein Quant 2025-07-10 06:03 [facility] 4.1 mg/dl (missing ) Calcium 2025-07-10 06:03 [facility] 9.8 mg/dl (missing) Chloride 2025-07-10 06:03 [facility] 95 mmol/l (missing) Result panel 233 Blood Culture 2025-07-10 23:10 [facility] (missing) (mi ssing) (missing) Blood Culture 2025-07-10 23:10 [facility] NO GROW TH AFTER 4 DAYS (missing) (missing) Result panel 234 Blood Culture 2025-07-10 23:13 [facility] (missing) (mi ssing) (missing) Blood Culture 2025-07-10 23:13 [facility] NO GROW TH AFTER 4 DAYS (missing) (missing) Result panel 235 C reactive protein [Mass/volume] in Serum or Plasma 2025-07-11 05:37:07 [facility] 3.0 mg/dL (miss ing) Result panel 236 Basophils Percent Auto 2025-07-11 06:[address] [place] [address] 1.4 % (missing) Basophils Absolute Auto 2025-07-11 06:[address] [place] [address] 100 /ul (missing) Hemoglobin 2025-07-11 06:[address] [place] [address] 12.6 g/dl (missing) Monocytes Absolute Auto 2025-07-11 06:[address] [place] [address] 130 0 /ul (missing) Monocytes Percent Auto 2025-07-11 06:[address] [place] [address] 14.2 % (missing) Lymphocytes Absolute Auto 2025-07-11 06:[address] [place] [address] 1 900 /ul (missing) Red Cell Distribution Width 2025-07-11 06:[address] [place] [address] 20.8 % (missing) Lymphocytes Percent Auto 2025-07-11 06:[address] [place] [address] 21 .0 % (missing) Mean Corpuscular Hemoglobin 2025-07-11 06:[address] [place] [address] 27.6 pg (missing) Platelet Count 2025-07-11 06:[address] [place] [address] 293 x1 0 3/ul (missing) Mean Corpuscular HGB Conc 2025-07-11 06:[address] [place] [address] 3 3.9 % (missing) Hematocrit 2025-07-11 06:[address] [place] [address] 37.0 % (missing) Eosinophils Percent Auto 2025-07-11 06:[address] [place] [address] 4. 3 % (missing) Red Blood Cell Count 2025-07-11 06:[address] [place] [address] 4.55 x10 6/ul (missing) Eosinophils Absolute Auto 2025-07-11 06:[address] [place] [address] 4 00 /ul (missing) Neutrophils Absolute Auto 2025-07-11 06:[address] [place] [address] 5 300 /ul (missing) Neutrophils Percent Auto 2025-07-11 06:[address] [place] [address] 59 .1 % (missing) Mean Corpuscular Volume 2025-07-11 06:[address] [place] [address] 81. 4 fl (missing) White Blood Cell Count 2025-07-11 06:[address] [place] [address] 9.0 x10 3/ul (missing) Result panel 237 Estimated Glomerular Filt Rate 2025-07-11 06:28 [facility] > 60 ml/min Reported eGFR is based the CKD-EPI 2021 equation that does not use a race coefficient. An eGFR below 60 mL/min/1.73m2 suggests that some kidney damage has occurred, and indicative of chronic kidney disease if persisting greater than 3 months. An eGFR less than 15 is indicative of kidney failure. Creatinine 2025-07-11 06:28 [facility] 1.10 mg/dl (missing) Calcium 2025-07-11 06:28 [facility] 10.6 mg/dl (missing) Glucose 2025-07-11 06:28 [facility] 108 mg/dl (missing) Sodium 2025-07-11 06:28 [facility] 132 mmol/l (missing) Carbon Dioxide 2025-07-11 06:28 [facility] 25 mm ol/l (missing) BUN Creatinine Ratio 2025-07-11 06:28 [facility] 27.3 (missing) (missing ) Blood Urea Nitrogen 2025-07-11 06:28 [facility] 30 mg/dl (missing ) Potassium 2025-07-11 06:28 [facility] 4.2 mmol/l (missing) Chloride 2025-07-11 06:28 [facility] 99 mmol/l (missing) Result panel 238 C-Reactive Protein Quant 2025-07-11 06:29 [facility] 3. 0 mg/dl (missing) Result panel 239 Blood Culture 2025-07-11 23:10 [facility] (missing) (mi ssing) (missing) Blood Culture 2025-07-11 23:10 [facility] NO GROW TH AFTER 5 DAYS (missing) (missing) Result panel 240 Blood Culture 2025-07-11 23:12 [facility] (missing) (mi ssing) (missing) Blood Culture 2025-07-11 23:12 [facility] NO GROW TH AFTER 5 DAYS (missing) (missing) Result panel 241 White blood cell count 2025-07-12 04:48:07 [facility] 1 1.1 X10^3/uL (missing) Result panel 242 Red blood cell count 2025-07-12 04:48:07 [facility] 4.6 5 X10^6/uL (missing) Result panel 243 Hemoglobin 2025-07-12 04:48:07 [facility] 12.7 g/d L (missing) Result panel 244 Hematocrit 2025-07-12 04:48:07 [facility] 37.7 % (missing) Result panel 245 MCV (mean corpuscular volume ) determination 2025-07-12 04:48:07 [facility] 81.2 fL (mis sing) Result panel 246 Mean corpuscular hemoglobin (MCH) determination 2025-07-12 04:48:07 [facility] 27.2 PG (missing) Result panel 247 Mean corpuscular hemoglobin concentration (MCHC) determination 2025-07-12 04:48:07 [facility] 33.5 % (mis sing) Result panel 248 Red cell distribution width determination 2025-07-12 04:48:07 [facility] 20.9 % (mis sing) Result panel 249 Platelet count 2025-07-12 04:48:07 [facility] 303 X10^3/uL (missing) Result panel 250 Automated neutrophil % 2025-07-12 04:48:07 [facility] 6 4.4 % (missing) Result panel 251 Automated lymphocyte % 2025-07-12 04:48:07 [facility] 1 7.3 % (missing) Result panel 252 Automated monocyte % 2025-07-12 04:48:07 [facility] 14. 3 % (missing) Result panel 253 Automated eosinophil % 2025-07-12 04:48:07 [facility] 3 .8 % (missing) Result panel 254 Automated basophil % 2025-07-12 04:48:07 [facility] 0.2 % (missing) Result panel 255 Absolute neutrophil [facility]07-12 [facility] Result panel 256 Absolute lymphocyte count 2025-07-12 04:48[facility] /uL (missing) Result panel 257 Automated blood monocyte count 2025-07-12 04:48:07 [facility] 1600 /uL (missing) Result panel 258 Automated eosinophil count 2025-07-12 04:48[facility] ([facility] Result panel 259 Automated basophil count 2025-07-12 04:48:07 [facility] 0 /uL (missing) Result panel 260 Sodium [Moles/volume] in Serum or Plasma 2025-07-12 04:48:07 [facility] 131 mmol/L ( issing) Result panel 261 Potassium [Moles/volume] in Serum or Plasma 2025-07-12 04:48:07 [facility] 4.1 mmol/L (m issing) Result panel 262 Chloride [Moles/volume] in Serum or Plasma 2025-07-12 04:48:07 [facility] 99 mmol/L (m issing) Result panel 263 Carbon dioxide, total [Moles/volume] in Serum or Plasma 2025-07-12 04:48:07 [facility] 26 mmol/L (miss ing) Result panel 264 Urea nitrogen [Mass/volume] in Serum or Plasma 2025-07-12 04:48:07 [facility] 27 mg/dL ([facility]) Result panel 265 Creatinine [Mass/volume] in Serum or Plasma 2025-07-12 04:48:07 [facility] 1.12 mg/dL ([facility]) Result panel 266 Glomerular filtration rate (GFR) estimation 2025-07-12 04:48:07 [facility] > 60 mL/min (missing) (missing) Result panel 267 BUN/creatinine ratio 2025-07-12 04:48:07 [facility] 24. 1 (missing) (missing) Result panel 268 Glucose [Mass/volume] in Serum or Plasma 2025-07-12 04:48:07 [facility] 111 mg/dL ([facility]) Result panel 269 Calcium [Mass/volume] in Serum or Plasma 2025-07-12 04:48:07 [facility] 10.3 mg/dL ([facility]) Result panel 270 Basophils Absolute Auto 2025-07-12 05:08 [facility] 0 /ul (missing) Basophils Percent Auto 2025-07-12 05:[address] [place] [address] 0.2 % (missing) White Blood Cell Count 2025-07-12 05:[address] [place] [address] 11.1 x10 3/ul (missing) Hemoglobin 2025-07-12 05:[address] [place] [address] 12.7 g/dl (missing) Monocytes Percent Auto 2025-07-12 05:[address] [place] [address] 14.3 % (missing) Monocytes Absolute Auto 2025-07-12 05:[address] [place] [address] 160 0 /ul (missing) Lymphocytes Percent Auto 2025-07-12 05:08 [facility] 17 .3 % (missing) Lymphocytes Absolute Auto 2025-07-12 05:[address] [place] [address] 1 900 /ul (missing) Red Cell Distribution Width 2025-07-12 05:08 [facility] 20.9 % (missing) Mean Corpuscular Hemoglobin 2025-07-12 05:[address] [place] [address] 27.2 pg (missing) Eosinophils Percent Auto 2025-07-12 05:[address] [place] [address] 3. 8 % (missing) Platelet Count 2025-07-12 05:[address] [place] [address] 303 x1 0 3/ul (missing) Mean Corpuscular HGB Conc 2025-07-12 05:08 [facility] 3 3.5 % (missing) Hematocrit 2025-07-12 05:08 [facility] 37.7 % (missing) Red Blood Cell Count 2025-07-12 05:08 [facility] 4.65 x10 6/ul (missing) Eosinophils Absolute Auto 2025-07-12 05:[address] [place] [address] 4 00 /ul (missing) Neutrophils Percent Auto 2025-07-12 05:[address] [place] [address] 64 .4 % (missing) Neutrophils Absolute Auto 2025-07-12 05:[address] [place] [address] 7 100 /ul (missing) Mean Corpuscular Volume 2025-07-12 05:[address] [place] [address] 81. 2 fl (missing) Result panel 271 Estimated Glomerular Filt Rate 2025-07-12 05:[address] [place] [address] > 60 ml/min Reported eGFR is based the CKD-EPI 2020 equation that does not use a race coefficient. An eGFR below 60 mL/min/1.73m2 suggests that some kidney damage has occurred, and indicative of chronic kidney disease if persisting greater than 3 months. An eGFR less than 15 is indicative of kidney failure. Creatinine 2025-07-12 05:[address] [place] [address] 1.12 mg/dl (missing) Calcium 2025-07-12 05:[address] [place] [address] 10.3 mg/dl (missing) Glucose 2025-07-12 05:[address] [place] [address] 111 mg/dl (missing) Sodium 2025-07-12 05:[address] [place] [address] 131 mmol/l (missing) BUN Creatinine Ratio 2025-07-12 05:[address] [place] [address] 24.1 (missing) (missing ) Carbon Dioxide 2025-07-12 05:[address] [place] [address] 26 mm ol/l (missing) Blood Urea Nitrogen 2025-07-12 05:[address] [place] [address] 27 mg/dl (missing ) Potassium 2025-07-12 05:[address] [place] [address] 4.1 mmol/l (missing) Chloride 2025-07-12 05:[address] [place] [address] 99 mmol/l (missing) Social History date description facility 2025-07-06 00:00 Never smoked tobacco (finding) [facility] 2025-07-07 00:00 Never smoked tobacco (finding) [facility] Vital Signs date measurement value units 2025-07-06 00:00 BMI 26.2 kg/m2 2025-07-06 00:00 height_metric 172.72 cm 2025-07-06 00:00 temperature_standard 102.4 F 2025-07-06 00:00 weight_metric 78.19 kg 2025-07-07 00:00 BP_diastolic 76 mmHg 2025-07-07 00:00 BP_systolic 128 mmHg 2025-07-07 00:00 heart_rate 81 /min 2025-07-07 00:00 height_metric 172.72 cm 2025-07-07 00:00 o2_saturation 97 % 2025-07-07 00:00 respiration_rate 21 /min 2025-07-07 00:00 weight_metric 78.19 kg 2025-07-13 00:00 BP_diastolic 68 mmHg 2025-07-13 00:00 BP_systolic 114 mmHg 2025-07-13 00:00 heart_rate 79 /min 2025-07-13 00:00 o2_saturation 96 % 2025-07-13 00:00 respiration_rate 18 /min 2025-07-13 00:00 temperature_standard 97.6 F
--- NOTE | 2025-09-17 19:06 | ED Physician Documentation ---
History of Present Illness Stated complaint Stated Complaint: GLF, LEFT PAIN, LAT NECK PAIN Chief complaint Chief Complaint: Trauma Ch/Bk History obtained from History obtained from: Patient History of Present Illness Timing: Prior to arrival Additonal information Additional information: Patient is a 84-year-old male presenting to the emergency department with co jean for recent fall. He was found by nursing staff at home. He was on the ground since around 12:00 to until about 6:00 this evening. He notes he was able to crawl into his bed but has been unable to get up since then secondary to pain. He notes left-sided rib pain and he denies hitting his head but he is on Eliquis. He tripped on a piece of rug prior to falling. He has some shortness of breath with his left-sided rib pain. Meds/Allgy Home Medications Ambulatory Orders Medication Instructions Recorded Confirmed apixaban 5 mg tablet 5 mg PO DAILY 03/28/2503/28 atorvastatin 80 mg tablet (Lipitor) 80 mg PO QPM 03/2803/28/25 atorvastatin 80 mg tablet (Lipitor) 80 mg PO QPM #60 t abs 03/28/25 bisoprolol fumarate 5 mg tablet 5 mg PO DAILY 03/28/25 03/28/25 bisoprolol fumarate 5 mg tablet 5 mg PO DAILY #60 tabs 03/28/25 budesonide-formoterol HFA 160 2 inh inhalation BID 03/28/25 mcg-4.5 mcg/actuation aerosol inhaler (Symbicort) budesonide-formoterol HFA 80 1 inh inhalation BID #10. 2 grams 03/28/25 mcg-4.5 mcg/actuation aerosol inhaler pantoprazole 40 mg tablet,delayed 40 mg PO DAILY 03/2803/28/25 release prednisone 20 mg tablet See Rx Instructions .Route 0 03/28/25 .COMPLEX #19 tabs tamsulosin 0.4 mg capsule 0.4 mg PO DAILY 03/28/25 tamsulosin 0.4 mg capsule (Flomax) 0.4 mg PO DAILY #60 caps 03/28/25 apixaban 2.5 mg tablet (Eliquis) 2.5 mg PO BID #120 ta bs 04/07/25 Allergies Allergies Allergy/AdvReac Type Severity Reaction Status Date / Time No Known Drug Allergies Allergy Verified 07/06/25 13:23 PFSH Active Problems All Active Problems (Updated 09/17/25 @ 21:41 by Sonia Fraga PA-C) Incidental pulmonary nodule, > 3mm and < 8mm (Acute) Head trauma (Acute) Weakness (Acute) Fall (Acute) Fracture of rib (Acute) Medical History Medical History (Updated 09/17/25 @ 21:41 by Sonia Fraga PA-C) History of colon cancer Histoplasmosis BPH (benign prostatic hyperplasia) HLD (hyperlipidemia) HTN (hypertension) Surgical History Surgical History History of colon surgery Social History Social History (Updated 09/17/25 @ 20:44 by Shantelle Melendrez RN) Smoking Status: Unknown if ever smoked Do you dip or chew tobacco?: No Do you vape?: No Living arrangement: At home Living Condition: With family Level: Independent Do you feel safe in your home environment?: Yes History of physical, verbal, emotional, or financial abuse?: No ETOH Use: None Substance Use: cannabis (any form) POLST Patient has POLST: No Exam Exam Vital Signs: Vital Signs x48h Temp Pulse Resp BP Pulse Ox 09/17/25 20:11 76 16 155/85 H 93 09/17/25 19:08 36.7 C 67 155/85 H 96 Constitutional normal general appearance No sigsn of truama to the head, patient is A & O x 3 HENMT normocephalic and head/scalp atraumatic Eyes PERRL, EOMs intact bilaterally and conjunctivae normal Neck/C-Spine C-collar in place, deffered exam Chest Reproducible left sided rib tenderness with swelling and ecchymosis, no crepitus and clear breath sounds on auscultation Respiratory breath sounds equal bilaterally, normal respiratory effort and clear to auscultation bilaterally Cardiovascular normal heart rate noted Irregular rhythma Results Vitals Vitals: Vital Signs - 24 hr 09/17/25 19:08 09/17/25 20:11 09/17/25 21:14 Temperature 36.7 C Temperature Source Temporal Artery Scan Pulse Rate 67 76 Respiratory Rate 16 Blood Pressure 155/85 H 155/85 H O2 Saturation 96 93 O2 Source Room air Room air Pain Intensity 5 4 6 09/17/25 21:38 Temperature Temperature Source Pulse Rate Respiratory Rate Blood Pressure O2 Saturation O2 Source Pain Intensity 8 Oxygen O2 Source Room air Labs Labs: Laboratory Tests 09/17/25 19:05 WBC 11.4 H RBC 4.31 L Hgb 13.1 L Hct 39.8 L MCV 92.3 MCH 30.4 MCHC 32.9 RDW 15.4 H Plt Count 274 MPV 8.8 Neut # (Auto) 8.9 H Lymph # (Auto) 1.2 L Sierra # (Auto) 0.7 Eos # (Auto) 0.4 Baso # (Auto) 0.1 Absolute Nucleated RBC 0.00 Nucleated RBC % 0.0 PT 12.6 INR 1.1 Sodium 131 L Potassium 4.2 Chloride 100 L Carbon Dioxide 23 Anion Gap 8.0 BUN 30 H Creatinine 1.2 Estimated GFR (MDRD) 58 L Glucose 162 H Calcium 10.9 H Total Bilirubin 0.6 AST 17 ALT 12 Alkaline Phosphatase 74 Total Protein 7.6 Albumin 4.0 Globulin 3.6 Albumin/Globulin Ratio 1.1 PD Medical Decision Making ED course Complexity details: reviewed old records and reviewed results ED course: Patient 84-year-old male presenting to the emergency department with concerns for left-sided rib pain and recent fall. He notes he was walking around his apartment around 12:00 when he tripped on a rug landing on his left side. He is not think he hit his head but he is on Eliquis. He has a past medical history remarkable for atrial fibrillation on Eliquis, history of hyperlipidemia and history of COPD. Vital stable on arrival patient nontachycardic afebrile saturating well on room air reproducible left-sided rib tenderness on palpation of her ribs. No obvious step-off mild swelling appreciated labs here in the ED showed mild leukocytosis of 11.4 hemoglobin is stable at 13.1 sodium stable at 131 with no significant ROS GFR slightly diminished at 58 with baseline closer to 65 compared to a few months ago. Glucose level within normal range at 162. CT cervical spine:No acute, displaced fracture or traumatic subluxation. CT head: No acute intracranial pathology. CT chest wo: Acute nondisplaced fractures of the left posterior seventh through ninth ribs. Additional chronic left-sided rib fracture deformities are present. Stable 7 mm right lower lobe pulmonary nodule when compared to prior CT chest dated 03/28/2025. Patient updated on reassuring findings. However given 3 rib fractures including 7th or 9th ribs and persistent pain here in the ED patient like to stay overnight she meets the criteria for admission patient will stay here overnight. Discussed with Dr. Dockery hospitalist with accepts patient to admission patient will be admitted overnight Discharge Plan Discharge Patient Disposition: 66 [facility] DC/Xfer Condition: Good Clinical Impression: Fracture of rib, Fall, Weakness, Head trauma, Incidental pulmonary nodule, > 3mm and < 8mm Prescriptions: No Action apixaban 5 mg tablet 5 mg PO DAILY Patient Comments: hasn't been taking, ran out. atorvastatin [Lipitor] 80 mg tablet 80 mg PO QPM bisoprolol fumarate 5 mg tablet 5 mg PO DAILY Patient Comments: hasn't been taking, ran out. budesonide-formoterol [Symbicort] 160-4.5 mcg/actuation HFA aerosol inhaler 2 inh inhalation BID pantoprazole 40 mg tablet,delayed release (DR/EC) 40 mg PO DAILY tamsulosin 0.4 mg capsule 0.4 mg PO DAILY Patient Comments: hasn't been taking, ran out. prednisone 20 mg tablet See Rx Instructions .ROUTE .COMPLEX Qty: 19 0RF Rx Instructions: 3 tabs po daily x 3 days, then 2 tabs po daily x 3 days then 1 tab po daily x 4 days tamsulosin [Flomax] 0.4 mg capsule 0.4 mg PO DAILY Qty: 60 0RF atorvastatin [Lipitor] 80 mg tablet 80 mg PO QPM Qty: 60 0RF bisoprolol fumarate 5 mg tablet 5 mg PO DAILY Qty: 60 0RF budesonide-formoterol 80-4.5 mcg/actuation HFA aerosol inhaler 1 inh inhalation BID Qty: 10.2 2RF Eliquis 2.5 mg tablet 2.5 mg PO BID Qty: 120 0RF Print Language: Estonian
[2025-09-17 19:17] LABS: HCT - HEMATOCRIT 39.8 % (42.0-52.0); HGB - HEMOGLOBIN 13.1 g/dL (14.0-18.0); MEAN PLATELET VOLUME 8.8 fL (7.4-11.4); NRBC ABSOLUTE COUNT (AUTO) 0.00 x10^3/uL; NUCLEATED RED BLOOD CELLS AUTO 0.0 /100WBC; PLT - PLATELET COUNT 274 10^3/uL (130-450); RED CELL DISTRIBUTION WIDTH 15.4 % (12.0-15.0)
[2025-09-17 19:29] LABS: ALT ALANINE AMINOTRANSFERASE 12.0 IU/L (10-60); AST ASPARTATE AMINOTRANSFERASE 17.0 IU/L (10-42); BUN - BLOOD UREA NITROGEN 30.0 mg/dL (6-20); CARBON DIOXIDE - CO2 23.0 mmol/L (21-32); CREATININE 1.2 mg/dL (0.6-1.3); GFR - MDRD 58.0 (>89); INR 1.1 (0.8-1.2); PT - PROTHROMBIN TIME 12.6 secs (9.9-12.6)
--- NOTE | 2025-09-17 20:12 | CT Report ---
PROCEDURE: CT Head WO INDICATIONS: head pain after fall TECHNIQUE: CT of the head was performed, without intravenous contrast. Reformats: Coronal and sagittal. For radiation dose reduction, the following was used: automated exposure control, adjustment of mA and/or kV according to patient size. COMPARISON: CT examination July 06, 2025 FINDINGS: Image quality: Diagnostic. CSF spaces: Basal cisterns are patent. No extra-axial fluid collections. Ventricles are normal in size and shape. Brain: No midline shift. No intracranial mass effect or hemorrhage. Torres- white matter interface is normal. Diffuse cerebral volume loss. Periventricular white matter hypoattenuation, unchanged. Skull and face: Calvarium and visualized facial bones are intact, without suspicious lesions. Sinuses: Visualized sinuses and mastoids are clear. IMPRESSION: No acute intracranial pathology. Reviewed by: Chema Jung MD on 09/17/2025 8:08 PM [facility] Approved by: Chema Jung MD on 09/17/2025 8:08 PM PST Station ID: [email or web address]
--- NOTE | 2025-09-17 20:28 | CT Report ---
PROCEDURE: CT Cervical Spine WO INDICATIONS: neck pain after fall TECHNIQUE: Noncontrast images acquired from the skull base to the T4 level. Sagittal and coronal reformats were then constructed. For radiation dose reduction, the following was used: automated exposure control, adjustment of mA and/or kV according to patient size. COMPARISON: CT cervical spine 07/06/2025 FINDINGS: Image quality: Excellent. Bones: No displaced fracture or traumatic malalignment. Visualized superior ribs are intact. Similar multilevel degenerative changes of the cervical spine with degenerative disc disease most prominent at C5-C6 and prominent multilevel uncovertebral and facet arthrosis. There is mild bony spinal canal stenosis at C2-3, C3-4, and C5-6. Soft tissues: Prevertebral soft tissues are normal in thickness. No paravertebral hematomas. No apical pneumothoraxes. IMPRESSION: No acute, displaced fracture or traumatic subluxation. Reviewed by: Sebas Ritchie MD on 09/17/2025 8:25 PM PST Approved by: Sebas Ritchie MD on 09/17/2025 8:25 PM PST Station ID: [email or web address]
--- NOTE | 2025-09-17 20:36 | CT Report ---
PROCEDURE: CT Chest WO INDICATIONS: left sided rib pain TECHNIQUE: A CT scan of the chest was performed. Intravenous contrast media was not administered. Images were recorded and evaluated at appropriate window settings. Reformats: axial MIP of the chest, coronal and sagittal. For radiation dose reduction, the following was used: automated exposure control, adjustment of mA and/or kV according to patient size. COMPARISON: CTA chest 03/28/2025 FINDINGS: Image quality: Diagnostic. Chest wall and lower neck: No thyroid nodule which requires sonographic follow up. No axillary or supraclavicular adenopathy by size. Lungs and pleura: Mild bibasilar atelectasis. No pleural effusions. No pneumothorax. Unchanged 7 mm pulmonary nodule in the right lower lobe, when compared to prior CT chest dated 03/28/2025. Mediastinum: Heart size is normal. Coronary artery calcifications. No pericardial effusion. No large vessel abnormality. No mediastinal adenopathy by size criteria. Bones: Acute nondisplaced fractures of the left posterior seventh through ninth ribs. Additional chronic left-sided rib fracture deformities are present. Multilevel degenerative changes of the visualized spine, severe degenerative changes of the glenohumeral joints. Upper Abdomen: Gallstones. Colonic anastomosis in the right upper quadrant. IMPRESSION: Acute nondisplaced fractures of the left posterior seventh through ninth ribs. Additional chronic left-sided rib fracture deformities are present. Stable 7 mm right lower lobe pulmonary nodule when compared to prior CT chest dated 03/28/2025. Reviewed by: Sebas Ritchie MD on 09/17/2025 8:33 PM PST Approved by: Sebas Ritchie MD on 09/17/2025 8:33 PM PST Station ID: [email or web address]
[2025-09-17] MEDS: HYDROmorphone 0.5 MG/0.5 ML SYRINGE IVP STA (21:14)
[2025-09-17] MEDS: MORPHINE 2 MG/ML CARPUJECT IVP STA (21:38)
--- NOTE | 2025-09-17 22:29 | HISTORY & PHYSICAL EXAMINATION ---
Chief Complaint Chief Complaint Chief Complaint: Fall History of Present Illness History of Present Illness HPI Comment/Other: 84 y male with PMH HTN, hyperlipidemia, A fib, GERD, BPH presented to ER s/p mechanical fall. As per pt, he tripped and fell. Denies head injury or LOC C/O pain in left chest wall. C/O mild sob Denies FERGUSON, dizziness, palpiatation, nausea, vomiting, diarrhea, symptoms CT head and C spine showed no acute findings CT chest showed acute non-displaced left 7th to 9th rib fractures. No pneumothorax Labs showed WBC 11 Pt is admitted due to acute left rib fractures for pain control Review of Systems Status of ROS: 10 or more systems reviewed and unremarkable except as noted in history and below PFSH Active Problems All Active Problems (Updated 09/17/25 @ 21:41 by Sonia Fraga PA-C) Incidental pulmonary nodule, > 3mm and < 8mm (Acute) Head trauma (Acute) Weakness (Acute) Fall (Acute) Fracture of rib (Acute) Medical History Medical History (Updated 09/17/25 @ 21:41 by Sonia Fraga PA-C) History of colon cancer Histoplasmosis BPH (benign prostatic hyperplasia) HLD (hyperlipidemia) HTN (hypertension) Surgical History Surgical History History of colon surgery Social History Social History (Updated 09/17/25 @ 20:44 by Shantelle Melendrez RN) Smoking Status: Unknown if ever smoked Do you dip or chew tobacco?: No Do you vape?: No Living arrangement: At home Living Condition: With family Level: Independent Do you feel safe in your home environment?: Yes History of physical, verbal, emotional, or financial abuse?: No ETOH Use: None Substance Use: cannabis (any form) POLST Patient has POLST: No Meds/Allgy Home Medications Ambulatory Orders Medication Instructions Recorded Confirmed apixaban 5 mg tablet 5 mg PO DAILY 03/28/2503/28 atorvastatin 80 mg tablet (Lipitor) 80 mg PO QPM 03/2803/28/25 atorvastatin 80 mg tablet (Lipitor) 80 mg PO QPM #60 t abs 03/28/25 bisoprolol fumarate 5 mg tablet 5 mg PO DAILY 03/28/25 03/28/25 bisoprolol fumarate 5 mg tablet 5 mg PO DAILY #60 tabs 03/28/25 budesonide-formoterol HFA 160 2 inh inhalation BID 03/28/25 mcg-4.5 mcg/actuation aerosol inhaler (Symbicort) budesonide-formoterol HFA 80 1 inh inhalation BID #10. 2 grams 03/28/25 mcg-4.5 mcg/actuation aerosol inhaler pantoprazole 40 mg tablet,delayed 40 mg PO DAILY 03/2803/28/25 release prednisone 20 mg tablet See Rx Instructions .Route 0 03/28/25 .COMPLEX #19 tabs tamsulosin 0.4 mg capsule 0.4 mg PO DAILY 03/28/25 tamsulosin 0.4 mg capsule (Flomax) 0.4 mg PO DAILY #60 caps 03/28/25 apixaban 2.5 mg tablet (Eliquis) 2.5 mg PO BID #120 ta bs 04/07/25 Allergies Allergies Allergy/AdvReac Type Severity Reaction Status Date / Time No Known Drug Allergies Allergy Verified 07/06/25 13:23 Exam Exam Vital Signs: Vital Signs x48h Temp Pulse Resp BP Pulse Ox 09/17/25 20:11 76 16 155/85 H 93 09/17/25 19:08 36.7 C 67 155/85 H 96 Constitutional normal general appearance HENMT normocephalic Eyes PERRL Chest inspection of chest normal Respiratory breath sounds equal bilaterally Cardiovascular normal heart rate noted Gastrointestinal abdomen normal to inspection Extremities normal to inspection Neurology no focal motor deficit noted Skin no rash Conclusion/Plan Problem List (1) Fracture of rib: Plan: A: FALL Acute non displaced left 7th to 9th ribs fractures HTN Hyperlipidemia A fib GERD BPH Plan: Admit to med surg Pain control PT Cont bisoprol Cont Eliquis Cont atorvastatin Cont flomax DVT prophylaxic: On Eliquis Full code Pt is admitted as inpatient as more than 2 midnight stay is expected Lab Results 09/17/25 19:05 09/17/25 19:05
--- OUTSIDE RECORDS SUMMARY | 2025-09-17 22:29 | EXTERNAL MEDICAL SUMMARY RPT | Continuity of Care Document ---
Author Organization [facility] Address [address] [place] [id number] Phone Care Team Providers Care Material Engineer Name Role Phone Unavailable Unavailable Unavailable Mario Snow Unavailable Unavailable Allergies and Intolerances date description facility reaction severity 2025-07-06 18:17:56 UNK [facility] (no reactio n) (no severity) Medications date description facility 2025-07-10 00:00 Apixaban [facility] 2025-07-12 00:00 Doxycycline Hyclate [facility] ital 2025-07-11 00:00 Furosemide [facility] 2025-07-11 00:00 Tamsulosin [facility] 2025-07-11 00:00 Metoprolol Succinate [facility] Problems date description facility 2025-07-07 00:00 Leukocytosis [facility] 2025-07-07 00:00 Acute hyponatremia [facility] 2025-07-07 00:00 Atrial fibrillation with rapid ventricular response [facility] 2025-07-07 00:00 Urinary tract infection [facility] 2025-07-07 00:00 Generalized weakness [facility] 2025-07-07 09:13 Unspecified atrial fibrillation [facility] 2025-07-07 09:17 Unspecified atrial fibrillation [facility] 2025-07-07 09:36 Unspecified atrial fibrillation [facility] 2025-07-07 09:37 Unspecified atrial fibrillation [facility] 2025-07-07 12:10 Unspecified atrial fibrillation [facility] 2025-07-07 14:23 Unspecified atrial fibrillation [facility] 2025-07-07 14:34 Unspecified atrial fibrillation [facility] 2025-07-08 10:48 Procedure and treatm ent not carried out due to patient leaving prior to being seen by health care provider [facility] 2025-07-09 14:49 Unspecified atrial fibrillation [facility] 2025-07-11 12:48 Unspecified atrial fibrillation [facility] 2025-07-12 13:45 Unspecified atrial fibrillation [facility] 2025-07-13 10:43 Unspecified atrial fibrillation [facility] 2025-08-12 10:21 Unspecified atrial fibrillation [facility] Procedures date description facility 2025-07-06 00:00 Blood culture [facility] 2025-07-06 00:00 X-ray of chest, single view [facility] 2025-07-08 00:00 Complete Doppler echocardiograp [facility] Results/Labs test date facility value unit notes Result panel 1 Specimen collection (procedure) (no date) [facility] (missing) (missing) (missing) Result panel 2 Specimen collection (procedure) (no date) [facility] (missing) (missing) (missing) Result panel 3 Specimen collection (procedure) (no date) [facility] (missing) (missing) (missing) Result panel 4 Specimen collection (procedure) (no date) [facility] (missing) (missing) (missing) Result panel 5 Specimen collection (procedure) (no date) [facility] (missing) (missing) (missing) Result panel 6 Specimen collection (procedure) (no date) [facility] (missing) (missing) (missing) Result panel 7 Specimen collection (procedure) (no date) [facility] (missing) (missing) (missing) Result panel 8 Specimen collection (procedure) (no date) [facility] (missing) (missing) (missing) Result panel 9 Specimen collection (procedure) (no date) [facility] (missing) (missing) (missing) Result panel 10 Specimen collection (procedure) (no date) [facility] (missing) (missing) (missing) Result panel 11 Specimen collection (procedure) (no date) [facility] (missing) (missing) (missing) Result panel 12 Specimen collection (procedure) (no date) [facility] (missing) (missing) (missing) Result panel 13 Specimen collection (procedure) (no date) [facility] (missing) (missing) (missing) Result panel 14 Specimen collection (procedure) (no date) [facility] (missing) (missing) (missing) Result panel 15 Specimen collection (procedure) (no date) [facility] (missing) (missing) (missing) Result panel 16 Specimen collection (procedure) (no date) [facility] (missing) (missing) (missing) Result panel 17 Specimen collection (procedure) (no date) [facility] (missing) (missing) (missing) Result panel 18 Specimen collection (procedure) (no date) [facility] (missing) (missing) (missing) Result panel 19 Specimen collection (procedure) (no date) [facility] (missing) (missing) (missing) Result panel 20 Specimen collection (procedure) (no date) [facility] (missing) (missing) (missing) Result panel 21 Specimen collection (procedure) (no date) [facility] (missing) (missing) (missing) Result panel 22 Specimen collection (procedure) (no date) [facility] (missing) (missing) (missing) Result panel 23 Specimen collection (procedure) (no date) [facility] (missing) (missing) (missing) Result panel 24 Specimen collection (procedure) (no date) [facility] (missing) (missing) (missing) Result panel 25 Specimen collection (procedure) (no date) [facility] (missing) (missing) (missing) Result panel 26 Specimen collection (procedure) (no date) [facility] (missing) (missing) (missing) Result panel 27 Specimen collection (procedure) (no date) [facility] (missing) (missing) (missing) Result panel 28 Specimen collection (procedure) (no date) [facility] (missing) (missing) (missing) Result panel 29 Specimen collection (procedure) (no date) [facility] (missing) (missing) (missing) Result panel 30 Specimen collection (procedure) (no date) [facility] (missing) (missing) (missing) Result panel 31 Specimen collection (procedure) (no date) [facility] (missing) (missing) (missing) Result panel 32 Specimen collection (procedure) (no date) [facility] (missing) (missing) (missing) Result panel 33 Specimen collection (procedure) (no date) [facility] (missing) (missing) (missing) Result panel 34 Specimen collection (procedure) (no date) [facility] (missing) (missing) (missing) Result panel 35 Specimen collection (procedure) (no date) [facility] (missing) (missing) (missing) Result panel 36 Specimen collection (procedure) (no date) [facility] (missing) (missing) (missing) Result panel 37 Specimen collection (procedure) (no date) [facility] (missing) (missing) (missing) Result panel 38 Specimen collection (procedure) (no date) [facility] (missing) (missing) (missing) Result panel 39 Specimen collection (procedure) (no date) [facility] (missing) (missing) (missing) Result panel 40 Specimen collection (procedure) (no date) [facility] (missing) (missing) (missing) Result panel 41 Specimen collection (procedure) (no date) [facility] (missing) (missing) (missing) Result panel 42 Specimen collection (procedure) (no date) [facility] (missing) (missing) (missing) Result panel 43 Specimen collection (procedure) (no date) [facility] (missing) (missing) (missing) Result panel 44 Specimen collection (procedure) (no date) [facility] (missing) (missing) (missing) Result panel 45 Specimen collection (procedure) (no date) [facility] (missing) (missing) (missing) Result panel 46 Specimen collection (procedure) (no date) [facility] (missing) (missing) (missing) Result panel 47 Specimen collection (procedure) (no date) [facility] (missing) (missing) (missing) Result panel 48 Specimen collection (procedure) (no date) [facility] (missing) (missing) (missing) Result panel 49 Specimen collection (procedure) (no date) [facility] (missing) (missing) (missing) Result panel 50 Specimen collection (procedure) (no date) [facility] (missing) (missing) (missing) Result panel 51 Specimen collection (procedure) (no date) [facility] (missing) (missing) (missing) Result panel 52 Specimen collection (procedure) (no date) [facility] (missing) (missing) (missing) Result panel 53 Specimen collection (procedure) (no date) [facility] (missing) (missing) (missing) Result panel 54 Specimen collection (procedure) (no date) [facility] (missing) (missing) (missing) Result panel 55 Specimen collection (procedure) (no date) [facility] (missing) (missing) (missing) Result panel 56 Specimen collection (procedure) (no date) [facility] (missing) (missing) (missing) Result panel 57 Specimen collection (procedure) (no date) [facility] (missing) (missing) (missing) Result panel 58 Specimen collection (procedure) (no date) [facility] (missing) (missing) (missing) Result panel 59 Specimen collection (procedure) (no date) [facility] (missing) (missing) (missing) Result panel 60 Specimen collection (procedure) (no date) [facility] (missing) (missing) (missing) Result panel 61 Specimen collection (procedure) (no date) [facility] (missing) (missing) (missing) Result panel 62 Specimen collection (procedure) (no date) [facility] (missing) (missing) (missing) Result panel 63 Specimen collection (procedure) (no date) [facility] (missing) (missing) (missing) Result panel 64 Specimen collection (procedure) (no date) [facility] (missing) (missing) (missing) Result panel 65 Specimen collection (procedure) (no date) [facility] (missing) (missing) (missing) Result panel 66 Specimen collection (procedure) (no date) [facility] (missing) (missing) (missing) Result panel 67 Specimen collection (procedure) (no date) [facility] (missing) (missing) (missing) Result panel 68 Specimen collection (procedure) (no date) [facility] (missing) (missing) (missing) Result panel 69 Specimen collection (procedure) (no date) [facility] (missing) (missing) (missing) Result panel 70 Specimen collection (procedure) (no date) [facility] (missing) (missing) (missing) Result panel 71 Specimen collection (procedure) (no date) [facility] (missing) (missing) (missing) Result panel 72 Specimen collection (procedure) (no date) [facility] (missing) (missing) (missing) Result panel 73 Specimen collection (procedure) (no date) [facility] (missing) (missing) (missing) Result panel 74 Specimen collection (procedure) (no date) [facility] (missing) (missing) (missing) Result panel 75 Specimen collection (procedure) (no date) [facility] (missing) (missing) (missing) Result panel 76 Specimen collection (procedure) (no date) [facility] (missing) (missing) (missing) Result panel 77 Specimen collection (procedure) (no date) [facility] (missing) (missing) (missing) Result panel 78 Specimen collection (procedure) (no date) [facility] (missing) (missing) (missing) Result panel 79 Specimen collection (procedure) (no date) [facility] (missing) (missing) (missing) Result panel 80 Specimen collection (procedure) (no date) [facility] (missing) (missing) (missing) Result panel 81 Specimen collection (procedure) (no date) [facility] (missing) (missing) (missing) Result panel 82 Specimen collection (procedure) (no date) [facility] (missing) (missing) (missing) Result panel 83 Specimen collection (procedure) (no date) [facility] (missing) (missing) (missing) Result panel 84 Specimen collection (procedure) (no date) [facility] (missing) (missing) (missing) Result panel 85 Specimen collection (procedure) (no date) [facility] (missing) (missing) (missing) Result panel 86 Specimen collection (procedure) (no date) [facility] (missing) (missing) (missing) Result panel 87 Specimen collection (procedure) (no date) [facility] (missing) (missing) (missing) Result panel 88 Specimen collection (procedure) (no date) [facility] (missing) (missing) (missing) Result panel 89 Specimen collection (procedure) (no date) [facility] (missing) (missing) (missing) Result panel 90 Specimen collection (procedure) (no date) [facility] (missing) (missing) (missing) Result panel 91 Specimen collection (procedure) (no date) [facility] (missing) (missing) (missing) Result panel 92 Specimen collection (procedure) (no date) [facility] (missing) (missing) (missing) Result panel 93 Specimen collection (procedure) (no date) [facility] (missing) (missing) (missing) Result panel 94 Specimen collection (procedure) (no date) [facility] (missing) (missing) (missing) Result panel 95 Specimen collection (procedure) (no date) [facility] (missing) (missing) (missing) Result panel 96 Specimen collection (procedure) (no date) [facility] (missing) (missing) (missing) Result panel 97 Specimen collection (procedure) (no date) [facility] (missing) (missing) (missing) Result panel 98 Specimen collection (procedure) (no date) [facility] (missing) (missing) (missing) Result panel 99 Specimen collection (procedure) (no date) [facility] (missing) (missing) (missing) Result panel 100 Specimen collection (procedure) (no date) [facility] (missing) (missing) (missing) Result panel 101 Specimen collection (procedure) (no date) [facility] (missing) (missing) (missing) Result panel 102 Specimen collection (procedure) (no date) [facility] (missing) (missing) (missing) Result panel 103 Specimen collection (procedure) (no date) [facility] (missing) (missing) (missing) Result panel 104 Specimen collection (procedure) (no date) [facility] (missing) (missing) (missing) Result panel 105 Specimen collection (procedure) (no date) [facility] (missing) (missing) (missing) Result panel 106 Specimen collection (procedure) (no date) [facility] (missing) (missing) (missing) Result panel 107 Specimen collection (procedure) (no date) [facility] (missing) (missing) (missing) Result panel 108 Specimen collection (procedure) (no date) [facility] (missing) (missing) (missing) Result panel 109 Specimen collection (procedure) (no date) [facility] (missing) (missing) (missing) Result panel 110 Specimen collection (procedure) (no date) [facility] (missing) (missing) (missing) Result panel 111 Specimen collection (procedure) (no date) [facility] (missing) (missing) (missing) Result panel 112 Specimen collection (procedure) (no date) [facility] (missing) (missing) (missing) Result panel 113 Specimen collection (procedure) (no date) [facility] (missing) (missing) (missing) Result panel 114 Specimen collection (procedure) (no date) [facility] (missing) (missing) (missing) Result panel 115 Specimen collection (procedure) (no date) [facility] (missing) (missing) (missing) Result panel 116 Specimen collection (procedure) (no date) [facility] (missing) (missing) (missing) Result panel 117 Specimen collection (procedure) (no date) [facility] (missing) (missing) (missing) Result panel 118 Specimen collection (procedure) (no date) [facility] (missing) (missing) (missing) Result panel 119 Specimen collection (procedure) (no date) [facility] (missing) (missing) (missing) Result panel 120 Specimen collection (procedure) (no date) [facility] (missing) (missing) (missing) Result panel 121 Magnesium [Mass/volume] in Serum or Plasma 2025-07-06 19:06:07 [facility] 1.7 mg/dL ([facility]) Result panel 122 Bilirubin.total [Mass/volume ] in Serum or Plasma 2025-07-06 19:06:07 [facility] 2.2 mg/dL (missing) Result panel 123 Aspartate aminotransferase [Enzymatic activity/volume] in Serum or Plasma 2025-07-06 19:06:07 [facility] 43 IU[facility] Result panel 124 Alanine aminotransferase [Enzymatic activity/volume] in Serum or Plasma 2025-07-06 19:06:07 [facility] 15 IU/L ([facility]) Result panel 125 Alkaline phosphatase [Enzyma tic activity/volume] in Serum or Plasma 2025-07-06 19:06:07 [facility] 94 U/L ([facility]) Result panel 126 Protein total ser/plas 2025-07-06 19:06:07 [facility] 7 .7 g/dL (missing) Result panel 127 Albumin [Mass/volume] in Ser um or Plasma 2025-07-06 19:06:07 [facility] 4.1 g/dL ([facility]) Result panel 128 Globulin [Mass/volume] in Serum by calculation 2025-07-06 19:06:07 [facility] 3.6 g/dL (missing) Result panel 129 Albumin/Globulin [Mass Ratio] in Serum or Plasma 2025-07-06 19:06:07 [facility] 1.1 ([facility]) (missing) Result panel 130 Lipase [Enzymatic activity/volume] in Serum or Plasma 2025-07-06 19:06:07 [facility] 29 U/L ([facility]) Result panel 131 Influenza virus A RNA [Presence] in Upper respiratory specimen by RASHIDA with probe dete 2025-07-06 19:06:07 [facility] Flu a negative (missing) (missing) Result panel 132 Influenza virus B RNA [Presence] in Upper respiratory specimen by RASHIDA with probe dete 2025-07-06 19:06:07 [facility] Flu b negative (missing) (missing) Result panel 133 Respiratory syncytial virus RNA [Presence] in Nasopharynx by RASHIDA with probe detection 2025-07-06 19:06:07 [facility] Negative (missing) (missing) Result panel 134 White blood cell count 2025-07-06 19:06:07 [facility] 1 3.7 X10^3/uL (missing) Result panel 135 Red blood cell count 2025-07-06 19:06:07 [facility] 4.5 7 X10^6/uL (missing) Result panel 136 Hemoglobin 2025-07-06 19:06:07 [facility] 12.5 g/d L (missing) Result panel 137 Hematocrit 2025-07-06 19:06:07 [facility] 37.4 % (missing) Result panel 138 MCV (mean corpuscular volume ) determination 2025-07-06 19:06:07 [facility] 81.8 fL (mis sing) Result panel 139 Mean corpuscular hemoglobin (MCH) determination 2025-07-06 19:06:07 [facility] 27.4 PG (missing) Result panel 140 Mean corpuscular hemoglobin concentration (MCHC) determination 2025-07-06 19:06:07 [facility] 33.5 % (mis sing) Result panel 141 Red cell distribution width determination 2025-07-06 19:06:07 [facility] 21.4 % (mis sing) Result panel 142 Platelet count 2025-07-06 19:06:07 [facility] TNP (missing) (missing) Result panel 143 Automated neutrophil % 2025-07-06 19:06:07 [facility] 8 5.4 % (missing) Result panel 144 Automated lymphocyte % 2025-07-06 19:06:07 [facility] 5 .1 % (missing) Result panel 145 Automated monocyte % 2025-07-06 19:06:07 [facility] 9.3 % (missing) Result panel 146 Automated eosinophil % 2025-07-06 19:06:07 [facility] 0 .0 % (missing) Result panel 147 Automated basophil % 2025-07-06 19:06:07 [facility] 0.2 % (missing) Result panel 148 Absolute neutrophil count 2025-07-06 19:06:07 [facility] l [address]365 /uL (missing) Result panel 149 Absolute lymphocyte count 2025-07-06 19:06:07 [facility] l 700 /uL (missing) Result panel 150 Automated blood monocyte count 2025-07-06 19:06:07 [facility] spital 1300 /uL (missing) Result panel 151 [facility] Result panel 152 Automated basophil count 2025-07-06 19:06:07 [facility] 0 /uL (missing) Result panel 153 Platelet estimate 2025-07-06 19:06:07 [facility] Adequate on smear (missing) (missing) Result panel 154 RBC morphology 2025-07-06 19:06:07 [facility] See below (missing) (missing) Result panel 155 Blood anisocytosis detection 2025-07-06 19:06:07 [facility] 2+ (missing) (miss ing) Result panel 156 Sodium [Moles/volume] in Serum or Plasma 2025-07-06 19:06:07 [facility] 125 mmol/L (m issing) Result panel 157 Potassium [Moles/volume] in Serum or Plasma 2025-07-06 19:06:07 [facility] 4.2 mmol/L (critical [facility]) Result panel 158 Chloride [Moles/volume] in Serum or Plasma 2025-07-06 19:06:07 [facility] 99 mmol/L (critical [facility]) Result panel 159 Carbon dioxide, total [Moles/volume] in Serum or Plasma 2025-07-06 19:06:07 [facility] 17 mmol/L ([facility]) Result panel 160 Urea nitrogen [Mass/volume] in Serum or Plasma 2025-07-06 19:06:07 [facility] 26 mg/dL (critical [facility]) Result panel 161 Creatinine [Mass/volume] in Serum or Plasma 2025-07-06 19:06:07 [facility] 1.21 mg/dL (critical [facility] hospital) Result panel 162 Glomerular filtration rate (GFR) estimation 2025-07-06 19:06:07 [facility] 59 mL/min ( missing) Result panel 163 BUN/creatinine ratio 2025-07-06 19:06:07 [facility] 21. 5 (missing) (missing) Result panel 164 Glucose [Mass/volume] in Serum or Plasma 2025-07-06 19:06:07 [facility] 120 mg/dL (critical [facility]) Result panel 165 Calcium [Mass/volume] in Serum or Plasma 2025-07-06 19:06:07 [facility] 10.0 mg/dL (critical [facility] hospital) Result panel 166 Magnesium [Mass/volume] in Serum or Plasma 2025-07-06 19:06:07 [facility] 1.7 mg/dL (critical [facility] hospital) Result panel 167 Bilirubin.total [Mass/volume ] in Serum or Plasma 2025-07-06 19:06:07 [facility] 2.2 mg/dL (missing) Result panel 168 Aspartate aminotransferase [Enzymatic activity/volume] in Serum or Plasma 2025-07-06 19:06:07 [facility] 43 IU/L ([facility]) Result panel 169 Alanine aminotransferase [Enzymatic activity/volume] in Serum or Plasma 2025-07-06 19:06:07 [facility] 15 IU/L ([facility]) Result panel 170 Alkaline phosphatase [Enzyma tic activity/volume] in Serum or Plasma 2025-07-06 19:06:07 [facility] 94 U/L ([facility]) Result panel 171 Protein total ser/plas 2025-07-06 19:06:07 [facility] 7 .7 g/dL (missing) Result panel 172 Albumin [Mass/volume] in Ser um or Plasma 2025-07-06 19:06:07 [facility] 4.1 g/dL ([facility]) Result panel 173 Globulin [Mass/volume] in Serum by calculation 2025-07-06 19:06:07 [facility] 3.6 g/dL (missing) Result panel 174 Albumin/Globulin [Mass Ratio] in Serum or Plasma 2025-07-06 19:06:07 [facility] 1.1 ([facility]) (missing) Result panel 175 Lipase [Enzymatic activity/volume] in Serum or Plasma 2025-07-06 19:06:07 [facility] 29 U/L ([facility]) Result panel 176 Influenza virus A RNA [Presence] in Upper respiratory specimen by RASHIDA with probe dete 2025-07-06 19:06:07 [facility] Flu a negative (missing) (missing) Result panel 177 Influenza virus B RNA [Presence] in Upper respiratory specimen by RASHIDA with probe dete 2025-07-06 19:06:07 [facility] Flu b negative (missing) (missing) Result panel 178 Respiratory syncytial virus RNA [Presence] in Nasopharynx by RASHIDA with probe detection 2025-07-06 19:06:07 [facility] Negative (missing) (missing) Result panel 179 Albumin Globulin Ratio 2025-07-06 19:42 [facility] 1.1 (missing) (missing) Creatinine 2025-07-06 19:42 [facility] 1.21 mg/dl (missing) Calcium 2025-07-06 19:42 [facility] 10.0 mg/dl (missing) Glucose 2025-07-06 19:42 [facility] 120 mg/dl (missing) Sodium 2025-07-06 19:42 [facility] 125 mmol/l (missing) Alanine Aminotransferase 2025-07-06 19:42 [facility] 15 iu/l (missing) Carbon Dioxide 2025-07-06 19:42 [facility] 17 mmol/l (missing) Bilirubin Total 2025-07-06 19:42 [facility] 2.2 mg/dl (missing) BUN Creatinine Ratio 2025-07-06 19:42 [facility] 21.5 (missing) (missing) Blood Urea Nitrogen 2025-07-06 19:42 [facility] 26 mg/dl (missing) Lipase 2025-07-06 19:42 [facility] 29 u/l (missing) Globulin 2025-07-06 19:42 [facility] 3.6 g/dl (missing) Albumin 2025-07-06 19:42 [facility] 4.1 g/dl (missing) Potassium 2025-07-06 19:42 [facility] 4.2 mmol/l (missing) Aspartate Aminotransferase 2025-07-06 19:42 [facility] 43 iu/l (missing) Estimated Glomerular Filt Rate 2025-07-06 19:42 [facility] 59 ml/min Reported eGFR is based the CKD-EPI 2020 equation that does not use a race coefficient. An eGFR below 60 mL/min/1.73m2 suggests that some kidney damage has occurred, and indicative of chronic kidney disease if persisting greater than 3 months. An eGFR less than 15 is indicative of kidney failure. Total Protein 2025-07-06 19:42 [facility] 7.7 g/dl (missing) Alkaline Phosphatase 2025-07-06 19:42 [facility] 94 u/l (missing) Chloride 2025-07-06 19:42 [facility] 99 mmol/l (missing) Result panel 180 Basophils Absolute Auto 2025-07-06 19:47 [facility] 0 /ul (missing) Eosinophils Absolute Auto 2025-07-06 19:47 [facility] 0 /ul (missing) Eosinophils Percent Auto 2025-07-06 19:47 [facility] 0.0 % (missing) Basophils Percent Auto 2025-07-06 19:47 [facility] 0.2 % (missing) Neutrophils Absolute Auto 2025-07-06 19:47 [facility] [address]2516 /ul (missing) Hemoglobin 2025-07-06 19:47 [facility] 12.5 g/dl (missing) White Blood Cell Count 2025-07-06 19:47 [facility] 13.7 x10 3/ul (missing) Monocytes Absolute Auto 2025-07-06 19:47 [facility] 1300 /ul (missing) Red Cell Distribution Width 2025-07-06 19:47 [facility] 21.4 % (missing) Mean Corpuscular Hemoglobin 2025-07-06 19:47 [facility] 27.4 pg (missing) Mean Corpuscular HGB Conc 2025-07-06 19:47 [facility] 33.5 % (missing) Hematocrit 2025-07-06 19:47 [facility] 37.4 % (missing) Red Blood Cell Count 2025-07-06 19:47 [facility] 4.57 x10 6/ul (missing) Lymphocytes Percent Auto 2025-07-06 19:47 [facility] 5.1 % (missing) Lymphocytes Absolute Auto 2025-07-06 19:47 [facility] 700 /ul (missing) Mean Corpuscular Volume 2025-07-06 19:47 [facility] 81.8 fl (missing) Neutrophils Percent Auto 2025-07-06 19:47 [facility] 85.4 % (missing) Monocytes Percent Auto 2025-07-06 19:47 [facility] 9.3 % (missing) Platelet Count 2025-07-06 19:47 [facility] Test not performed x10 3/ul PLATELETS CLUMPED WITH FIBRIN STRANDS PRESENT, SLIDE REVIEW REFLECTS ADEQUATE QUANTITY. Result panel 181 Basophils Absolute Auto 2025-07-06 19:48 [facility] 0 /ul (missing) Eosinophils Absolute Auto 2025-07-06 19:48 [facility] 0 /ul (missing) Eosinophils Percent Auto 2025-07-06 19:48 [facility] 0.0 % (missing) Basophils Percent Auto 2025-07-06 19:48 [facility] 0.2 % (missing) Neutrophils Absolute Auto 2025-07-06 19:48 [facility] 05135 /ul (missing) Hemoglobin 2025-07-06 19:48 [facility] 12.5 g/dl (missing) White Blood Cell Count 2025-07-06 19:48 [facility] 13.7 x10 3/ul (missing) Monocytes Absolute Auto 2025-07-06 19:48 [facility] 1300 /ul (missing) Anisocytosis 2025-07-06 19:48 [facility] 2 (missing ) (missing) Red Cell Distribution Width 2025-07-06 19:48 [facility] 21.4 % (missing) Mean Corpuscular Hemoglobin 2025-07-06 19:48 [facility] 27.4 pg (missing) Mean Corpuscular HGB Conc 2025-07-06 19:48 [facility] 33.5 % (missing) Hematocrit 2025-07-06 19:48 [facility] 37.4 % (missing) Red Blood Cell Count 2025-07-06 19:48 [facility] 4.57 x10 6/ul (missing) Lymphocytes Percent Auto 2025-07-06 19:48 [facility] 5.1 % (missing) Lymphocytes Absolute Auto 2025-07-06 19:48 [facility] 700 /ul (missing) Mean Corpuscular Volume 2025-07-06 19:48 [facility] 81.8 fl (missing) Neutrophils Percent Auto 2025-07-06 19:48 [facility] 85.4 % (missing) Monocytes Percent Auto 2025-07-06 19:48 [facility] 9.3 % (missing) Platelet Estimate 2025-07-06 19:48 [facility] Adequate on smear (missing ) (missing) RBC Morphology 2025-07-06 19:48 [facility] See Below (missing ) (missing) Platelet Count 2025-07-06 19:48 [facility] Test not performed x10 3/ul PLATELETS CLUMPED WITH FIBRIN STRANDS PRESENT, SLIDE REVIEW REFLECTS ADEQUATE QUANTITY. Result panel 182 Influenza A - CEPHEID 2025-07-06 20:17 [facility] Flu A NEGATIVE (missing) (missing) Influenza B - CEPHEID 2025-07-06 20:17 [facility] Flu B NEGATIVE (missing) (missing) Respiratory Syncytial Virus 2025-07-06 20:17 [facility] Negative (missing) (missing) COVID-19 CEPHEID 4-PLEX PCR 2025-07-06 20:[address] [place] [address] Negative (missing) The Xpert Xpress SARS-CoV-2 test [...] [Mass/volume] in Serum or Plasma 2025-07-06 21:22:07 [facility] 5480 pg/mL (miss ing) Result panel 184 Natriuretic peptide.B prohormone N-Terminal [Mass/volume] in Serum or Plasma 2025-07-06 21:22:07 [facility] 5480 pg/mL (miss ing) Result panel 185 Magnesium 2025-07-06 21:33 [facility] 1.7 mg/dl (missing) Result panel 186 Microscopic analysis of urine for red blood cells (RBC) 2025-07-06 21:50:07 [facility] 1-5/hpf (missing) (missing) Result panel 187 Microscopic analysis of urine for white blood cells (WBC) 2025-07-06 21:50:07 [facility] 30-100/hpf (missing) (missing) Result panel 188 Urine squamous epithelial cell detection 2025-07-06 21:50:07 [facility] 0-1 /hpf (missing) (miss ing) Result panel 189 Microscopic analysis of urine for red blood cells (RBC) 2025-07-06 21:50:07 [facility] 1-5/hpf (missing) (missing) Result panel 190 Microscopic analysis of urine for white blood cells (WBC) 2025-07-06 21:50:07 [facility] 30-100/hpf (missing) (missing) Result panel 191 Urine squamous epithelial cell detection 2025-07-06 21:50:07 [facility] 0-1 /hpf (missing) (miss ing) Result panel 192 Procalcitonin [Mass/volume] in Serum or Plasma 2025-07-06 22:04:07 [facility] 0.642 ng/mL (missing) Result panel 193 Troponin I.cardiac [Mass/volume] in Serum or Plasma 2025-07-06 22:04:07 [facility] 0.057 ng/mL (miss ing) Result panel 194 C reactive protein [Mass/volume] in Serum or Plasma 2025-07-06 22:04:07 [facility] 7.1 mg/dL (miss ing) Result panel 195 Procalcitonin [Mass/volume] in Serum or Plasma 2025-07-06 22:04:07 [facility] 0.642 ng/mL (missing) Result panel 196 Squamous Epithelial Cell Urine 2025-07-06 22:13 [facility] 0-1 /HPF (missing) (missing) RBC Urine 2025-07-06 22:13 [facility] 1-5/HPF (missing) (missing) Urine Volume 2025-07-06 22:13 [facility] 10mL (spun) (missing) Urine Source: Urine, Random Culture if Indicated? Y WBC Urine 2025-07-06 22:13 [facility] 30-100/HPF (missing) (missing) Bacteria Urine 2025-07-06 22:13 [facility] Many (>30) (missing) (missing) Culture Indicated Urine 2025-07-06 22:13 [facility] Specimen Cultured (missing) (missing) Result panel 197 Troponin I 2025-07-06:18 [facility] 0.062 ng/ml Ortho Troponin-I Recommended Upper Reference Range & Cutoff The 99th Percentile URL: 0.034 ng/mL AMI Diagnostic Cutoff: 0.120 ng/mL NT-proBNP (BNP-Adult 18+) 2025-07-06 22:18 [facility] 5480 pg/ml The f taoing cut-points have [...] panel 198 Lactate (Lactic Acid) 2025-07-06 22:26 [facility] 2.1 mmol/l Yes/No query for Sepsis Lactate Rule Y Result panel 199 C-Reactive Protein Quant 2025-07-06 22:36 [facility] 7. 1 mg/dl (missing) Result panel 200 X-ray report 2025-07-06 22:49 [facility] (missing) (mis sing) (missing) Result panel 201 X-ray report 2025-07-06 22:49 [facility] (missing) (mis sing) (missing) Result panel 202 Blood culture 2025-07-06 22:58:07 [facility] NO G ROWTH AFTER 5 DAYS (missing) (missing) Result panel 203 Blood culture 2025-07-06 23:00:07 [facility] NO G ROWTH AFTER 5 DAYS (missing) (missing) Result panel 204 Troponin I 2025-07-06 23:01 [facility] 0.057 ng/ml Ortho Troponin-I Recommended Upper Reference Range & Cutoff The 99th Percentile URL: 0.034 ng/mL AMI Diagnostic Cutoff: 0.120 ng/mL Procalcitonin 2025-07-06 23:01 [facility] 0.642 ng/ ml <0.5 ng/mL Systemic infection [...] [Mass/volume] in Serum or Plasma 2025-07-06 23:30:07 [facility] 1.1 mmol/L (m issing) Result panel 206 Lactate [Mass/volume] in Serum or Plasma 2025-07-06 23:30:07 [facility] 1.1 mmol/L (m issing) Result panel 207 Lactate 2HR (Lactic Acid Rflx) 2025-07-07 00:01 [facility] 1.1 mmol/l (missing) Result panel 208 Emergency department note 2025-07-07 00:14 [facility] (missing) (missing) (missing ) Result panel 209 Emergency department note 2025-07-07 00:14 [facility] (missing) (missing) (missing ) Result panel 210 Troponin I 2025-07-07 07:40 [facility] 0.072 ng/ml Ortho Troponin-I Recommended Upper Reference Range & Cutoff The 99th Percentile URL: 0.034 ng/mL AMI Diagnostic Cutoff: 0.120 ng/mL Result panel 211 Troponin I.cardiac [Mass/volume] in Serum or Plasma 2025-07-07 10:05:07 [facility] 0.060 ng/mL (miss ing) Result panel 212 Troponin I 2025-07-07 10:47 [facility] 0.060 ng/ml Ortho Troponin-I Recommended Upper Reference Range & Cutoff The 99th Percentile URL: 0.034 ng/mL AMI Diagnostic Cutoff: 0.120 ng/mL Result panel 213 Blood Culture 2025-07-07 23:10 [facility] (missing) (ny ssing) (missing) Blood Culture 2025-07-07 23:10 [facility] NO GROW TH AFTER 24 HOURS (missing) (missing) Result panel 214 Blood Culture 2025-07-07 23:12 [facility] (missing) (ny ssing) (missing) Blood Culture 2025-07-07 23:12 [facility] NO GROW TH AFTER 24 HOURS (missing) (missing) Result panel 215 Platelet estimate 2025-07-08 04:33:07 [facility] Adequate on smear (missing) (missing) Result panel 216 RBC morphology 2025-07-08 04:33:07 [facility] See below (missing) (missing) Result panel 217 Blood anisocytosis detection 2025-07-08 04:33:07 [facility] 2+ (missing) (miss ing) Result panel 218 Macrocytes detection 2025-07-08 04:33:07 [facility] 1+ (missing) (missing) Result panel 219 Prostate specific Ag [Mass/volume] in Serum or Plasma 2025-07-08 04:33:07 [facility] 0.957 ng/mL (miss ing) Result panel 220 Basophils Percent Auto 2025-07-08 06:00 [facility] 0.5 % (missing) Eosinophils Percent Auto 2025-07-08 06:00 [facility] 0. 6 % (missing) White Blood Cell Count 2025-07-08 06:00 [facility] 10.3 x10 3/ul (missing) Basophils Absolute Auto 2025-07-08 06:00 [facility] 100 /ul (missing) Eosinophils Absolute Auto 2025-07-08 06:00 [facility] 1 00 /ul (missing) Hemoglobin 2025-07-08 06:00 [facility] 11.6 g/dl (missing) Monocytes Percent Auto 2025-07-08 06:00 [facility] 12.7 % (missing) Monocytes Absolute Auto 2025-07-08 06:00 [facility] 130 0 /ul (missing) Red Cell Distribution Width 2025-07-08 06:00 [facility] 21.5 % (missing) Platelet Count 2025-07-08 06:00 [facility] 232 x1 0 3/ul (missing) Mean Corpuscular Hemoglobin 2025-07-08 06:00 [facility] 27.5 pg (missing) Mean Corpuscular HGB Conc 2025-07-08 06:00 [facility] 3 4.0 % (missing) Hematocrit 2025-07-08 06:00 [facility] 34.1 % (missing) Red Blood Cell Count 2025-07-08 06:00 [facility] 4.21 x10 6/ul (missing) Neutrophils Percent Auto 2025-07-08 06:00 [facility] 77 .9 % (missing) Lymphocytes Percent Auto 2025-07-08 06:00 [facility] 8. 3 % (missing) Lymphocytes Absolute Auto 2025-07-08 06:00 [facility] 8 00 /ul (missing) Neutrophils Absolute Auto 2025-07-08 06:00 [facility] 8 000 /ul (missing) Mean Corpuscular Volume 2025-07-08 06:00 [facility] 81. 0 fl (missing) Result panel 221 Creatinine 2025-07-08 06:05 [facility] 1.36 mg/dl (missing) Glucose 2025-07-08 06:05 [facility] 124 mg/dl (missing) Sodium 2025-07-08 06:05 [facility] 126 mmol/l (missing) Carbon Dioxide 2025-07-08 06:05 [facility] 20 mm ol/l (missing) BUN Creatinine Ratio 2025-07-08 06:05 [facility] 22.1 (missing) (missing ) Potassium 2025-07-08 06:05 [facility] 3.6 mmol/l (missing) Blood Urea Nitrogen 2025-07-08 06:05 [facility] 30 mg/dl (missing) Estimated Glomerular Filt Rate 2025-07-08 06:05 [facility] 50 ml/min Reported eGFR is based the CKD-EPI 2020 equation that does not use a race coefficient. An eGFR below 60 mL/min/1.73m2 suggests that some kidney damage has occurred, and indicative of chronic kidney disease if persisting greater than 3 months. An eGFR less than 15 is indicative of kidney failure. Calcium 2025-07-08 06:05 [facility] 9.1 mg/dl (missing) Chloride 2025-07-08 06:05 [facility] 98 mmol/l (missing) Result panel 222 C-Reactive Protein Quant 2025-07-08 06:20 [facility] 10 .9 mg/dl (missing) Result panel 223 Basophils Percent Auto 2025-07-08 06:22 [facility] 0.5 % (missing ) Eosinophils Percent Auto 2025-07-08 06:22 [facility] 0.6 % (missing ) Macrocytosis 2025-07-08 06:22 [facility] 1 (mis sing) (missing) Microcytosis 2025-07-08 06:22 [facility] 1 (mis sing) (missing) White Blood Cell Count 2025-07-08 06:22 [facility] 10.3 x10 3/ul (missing ) Basophils Absolute Auto 2025-07-08 06:22 [facility] 100 /ul (missing ) Eosinophils Absolute Auto 2025-07-08 06:22 [facility] 100 /ul (missin g) Hemoglobin 2025-07-08 06:22 [facility] 11.6 g/dl (missing) Monocytes Percent Auto 2025-07-08 06:22 [facility] 12.7 % (missing ) Monocytes Absolute Auto 2025-07-08 06:22 [facility] 1300 /ul (missing ) Anisocytosis 2025-07-08 06:22 [facility] 2 (mis sing) (missing) Red Cell Distribution Width 2025-07-08 06:22 [facility] 21.5 % (m issing) Platelet Count 2025-07-08 06:22 [facility] 232 x1 0 3/ul (missing) Mean Corpuscular Hemoglobin 2025-07-08 06:22 [facility] 27.5 pg (missing ) Mean Corpuscular HGB Conc 2025-07-08 06:22 [facility] 34.0 % (missing ) Hematocrit 2025-07-08 06:22 [facility] 34.1 % (missing) Red Blood Cell Count 2025-07-08 06:22 [facility] 4.21 x10 6/ul (missing ) Neutrophils Percent Auto 2025-07-08 06:22 [facility] 77.9 % (missing ) Lymphocytes Percent Auto 2025-07-08 06:22 [facility] 8.3 % (missing ) Lymphocytes Absolute Auto 2025-07-08 06:22 [facility] 800 /ul (missin g) Neutrophils Absolute Auto 2025-07-08 06:22 [facility] 8000 /ul (missin g) Mean Corpuscular Volume 2025-07-08 06:22 [facility] 81.0 fl (missing ) Platelet Estimate 2025-07-08 06:22 [facility] Akilah quate on smear (missing) (missing) RBC Morphology 2025-07-08 06:22 [facility] See Below (m issing) (missing) Result panel 224 Prostate Specific Antigen 2025-07-08 06:34 [facility] 0 .957 ng/ml (missing) Result panel 225 [place] Count 2025-07-08 07:27 [facility] >100,000 cfu/ml (missing) ORGANISM 2025-07-08 07:27 [facility] GNBGram negative bacilli (missing) (missing) Action to follow 2025-07-08 07:27 [facility] Identification and Sensitivity to Follow (missing) (missing) Result panel 226 Echocardiography report 2025-07-08 10:36 [facility] (mi ssing) (missing) (missing) Result panel 227 Blood Culture 2025-07-08 23:10 [facility] (missing) (mi ssing) (missing) Blood Culture 2025-07-08 23:10 [facility] NO GROW TH AFTER 48 HOURS (missing) (missing) Result panel 228 Blood Culture 2025-07-08 23:12 [facility] (missing) (mi ssing) (missing) Blood Culture 2025-07-08 23:12 [facility] NO GROW TH AFTER 48 HOURS (missing) (missing) Result panel 229 Urine Culture 2025-07-09 07:05 [facility] (missing) (missing) (missing) [place] Count 2025-07-09 07:05 [facility] >100,000 cfu/ml (missing) Ciprofloxacin 2025-07-09 07:05 [facility] >=4 (missing) (missing) Levofloxacin 2025-07-09 07:05 [facility] >=8 (missing) (missing) Ertapenem 2025-07-09 07:05 [facility] <=0.12 (missing) (missing) Ceftriaxone 2025-07-09 07:05 [facility] <=0.25 (missing) (missing) Meropenem 2025-07-09 07:05 [facility] <=0.25 (missing) (missing) Gentamicin 2025-07-09 07:05 [facility] <=1 (missing) (missing) Nitrofurantoin 2025-07-09 07:05 [facility] <=16 (missing) (missing) Cefepime E-test 2025-07-09 07:05 [facility] <=2 (missing) (missing) Trimethoprim/Sulfa methoxazole 2025-07-09 07:05 [facility] <=20 (missing) (missing) Piperacillin/Tazob actam 2025-07-09 07:05 [facility] <=4 (missing) (missing) Tetracycline 2025-07-09 07:05 [facility] 2 (missing) (missing) Amoxicillin/Clavul anate 2025-07-09 07:05 [facility] 4 (missing) (missing) Cefazolin 2025-07-09 07:05 [facility] 4 (missing) (missing) Ampicillin 2025-07-09 07:05 [facility] 8 (missing) (missing) ORGANISM 2025-07-09 07:05 [facility] ESCCOLEscherichia coli (missing) (missing) Urine Culture 2025-07-09 07:05 [facility] Isolates that test susceptible to tetracycline are (missing) (missing) Action to follow 2025-07-09 07:05 [facility] No Further Workup (missing) (missing) Urine Culture 2025-07-09 07:05 [facility] considered susceptible to doxycycline and minocycline. (missing) (missing) Result panel 230 Blood Culture 2025-07-09 23:10 [facility] (missing) (mi ssing) (missing) Blood Culture 2025-07-09 23:10 [facility] NO GROW TH AFTER 72 HOURS (missing) (missing) Result panel 231 Blood Culture 2025-07-09 23:12 [facility] (missing) (mi ssing) (missing) Blood Culture 2025-07-09 23:12 [facility] NO GROW TH AFTER 72 HOURS (missing) (missing) Result panel 232 Estimated Glomerular Filt Rate 2025-07-10 06:03 [facility] > 60 ml/min Reported eGFR is based the CKD-EPI 2020 equation that does not use a race coefficient. An eGFR below 60 mL/min/1.73m2 suggests that some kidney damage has occurred, and indicative of chronic kidney disease if persisting greater than 3 months. An eGFR less than 15 is indicative of kidney failure. Creatinine 2025-07-10 06:03 [facility] 1.14 mg/dl (missing) Glucose 2025-07-10 06:03 [facility] 127 mg/dl (missing) Sodium 2025-07-10 06:03 [facility] 130 mmol/l (missing) BUN Creatinine Ratio 2025-07-10 06:03 [facility] 24.6 (missing) (missing ) Carbon Dioxide 2025-07-10 06:03 [facility] 25 mm ol/l (missing) Blood Urea Nitrogen 2025-07-10 06:03 [facility] 28 mg/dl (missing ) Potassium 2025-07-10 06:03 [facility] 3.8 mmol/l (missing) C-Reactive Protein Quant 2025-07-10 06:03 [facility] 4.1 mg/dl (missing ) Calcium 2025-07-10 06:03 [facility] 9.8 mg/dl (missing) Chloride 2025-07-10 06:03 [facility] 95 mmol/l (missing) Result panel 233 Blood Culture 2025-07-10 23:10 [facility] (missing) (mi ssing) (missing) Blood Culture 2025-07-10 23:10 [facility] NO GROW TH AFTER 4 DAYS (missing) (missing) Result panel 234 Blood Culture 2025-07-10 23:13 [facility] (missing) (mi ssing) (missing) Blood Culture 2025-07-10 23:13 [facility] NO GROW TH AFTER 4 DAYS (missing) (missing) Result panel 235 C reactive protein [Mass/volume] in Serum or Plasma 2025-07-11 05:37:07 [facility] 3.0 mg/dL (miss ing) Result panel 236 Basophils Percent Auto 2025-07-11 06:[address] [place] [address] 1.4 % (missing) Basophils Absolute Auto 2025-07-11 06:[address] [place] [address] 100 /ul (missing) Hemoglobin 2025-07-11 06:[address] [place] [address] 12.6 g/dl (missing) Monocytes Absolute Auto 2025-07-11 06:[address] [place] [address] 130 0 /ul (missing) Monocytes Percent Auto 2025-07-11 06:[address] [place] [address] 14.2 % (missing) Lymphocytes Absolute Auto 2025-07-11 06:[address] [place] [address] 1 900 /ul (missing) Red Cell Distribution Width 2025-07-11 06:[address] [place] [address] 20.8 % (missing) Lymphocytes Percent Auto 2025-07-11 06:[address] [place] [address] 21 .0 % (missing) Mean Corpuscular Hemoglobin 2025-07-11 06:[address] [place] [address] 27.6 pg (missing) Platelet Count 2025-07-11 06:[address] [place] [address] 293 x1 0 3/ul (missing) Mean Corpuscular HGB Conc 2025-07-11 06:[address] [place] [address] 3 3.9 % (missing) Hematocrit 2025-07-11 06:[address] [place] [address] 37.0 % (missing) Eosinophils Percent Auto 2025-07-11 06:[address] [place] [address] 4. 3 % (missing) Red Blood Cell Count 2025-07-11 06:[address] [place] [address] 4.55 x10 6/ul (missing) Eosinophils Absolute Auto 2025-07-11 06:[address] [place] [address] 4 00 /ul (missing) Neutrophils Absolute Auto 2025-07-11 06:[address] [place] [address] 5 300 /ul (missing) Neutrophils Percent Auto 2025-07-11 06:[address] [place] [address] 59 .1 % (missing) Mean Corpuscular Volume 2025-07-11 06:[address] [place] [address] 81. 4 fl (missing) White Blood Cell Count 2025-07-11 06:[address] [place] [address] 9.0 x10 3/ul (missing) Result panel 237 Estimated Glomerular Filt Rate 2025-07-11 06:28 [facility] > 60 ml/min Reported eGFR is based the CKD-EPI 2021 equation that does not use a race coefficient. An eGFR below 60 mL/min/1.73m2 suggests that some kidney damage has occurred, and indicative of chronic kidney disease if persisting greater than 3 months. An eGFR less than 15 is indicative of kidney failure. Creatinine 2025-07-11 06:[address] [place] [address] 1.10 mg/dl (missing) Calcium 2025-07-11 06:28 [facility] 10.6 mg/dl (missing) Glucose 2025-07-11 06:28 [facility] 108 mg/dl (missing) Sodium 2025-07-11 06:28 [facility] 132 mmol/l (missing) Carbon Dioxide 2025-07-11 06:28 [facility] 25 mm ol/l (missing) BUN Creatinine Ratio 2025-07-11 06:28 [facility] 27.3 (missing) (missing ) Blood Urea Nitrogen 2025-07-11 06:28 [facility] 30 mg/dl (missing ) Potassium 2025-07-11 06:28 [facility] 4.2 mmol/l (missing) Chloride 2025-07-11 06:28 [facility] 99 mmol/l (missing) Result panel 238 C-Reactive Protein Quant 2025-07-11 06:29 [facility] 3. 0 mg/dl (missing) Result panel 239 Blood Culture 2025-07-11 23:10 [facility] (missing) (mi ssing) (missing) Blood Culture 2025-07-11 23:10 [facility] NO GROW TH AFTER 5 DAYS (missing) (missing) Result panel 240 Blood Culture 2025-07-11 23:12 [facility] (missing) (mi ssing) (missing) Blood Culture 2025-07-11 23:12 [facility] NO GROW TH AFTER 5 DAYS (missing) (missing) Result panel 241 White blood cell count 2025-07-12 04:48:07 [facility] 1 1.1 X10^3/uL (missing) Result panel 242 Red blood cell count 2025-07-12 04:48:07 [facility] 4.6 5 X10^6/uL (missing) Result panel 243 Hemoglobin 2025-07-12 04:48:07 [facility] 12.7 g/d L (missing) Result panel 244 Hematocrit 2025-07-12 04:48:07 [facility] 37.7 % (missing) Result panel 245 MCV (mean corpuscular volume ) determination 2025-07-12 04:48:07 [facility] 81.2 fL (mis sing) Result panel 246 Mean corpuscular hemoglobin (MCH) determination 2025-07-12 04:48:07 [facility] 27.2 PG (missing) Result panel 247 Mean corpuscular hemoglobin concentration (MCHC) determination 2025-07-12 04:48:07 [facility] 33.5 % (mis sing) Result panel 248 Red cell distribution width determination 2025-07-12 04:48:07 [facility] 20.9 % (mis sing) Result panel 249 Platelet count 2025-07-12 04:48:07 [facility] 303 X10^3/uL (missing) Result panel 250 Automated neutrophil % 2025-07-12 04:48:07 [facility] 6 4.4 % (missing) Result panel 251 Automated lymphocyte % 2025-07-12 04:48:07 [facility] 1 7.3 % (missing) Result panel 252 Automated monocyte % 2025-07-12 04:48:07 [facility] 14. 3 % (missing) Result panel 253 Automated eosinophil % 2025-07-12 04:48:07 [facility] 3 .8 % (missing) Result panel 254 Automated basophil % 2025-07-12 04:48:07 [facility] 0.2 % (missing) Result panel 255 Absolute neutrophil [facility]-07-12 04:48[facility] Result panel 256 Absolute lymphocyte count 2025-07-12 04:48:07 [facility] /uL (missing) Result panel 257 Automated blood monocyte count 2025-07-12 04:48:07 [facility] 1600 /uL (missing) Result panel 258 Automated eosinophil count 2025-07-12 04:48[facility] Result panel 259 Automated basophil count 2025-07-12 04:48:07 [facility] 0 /uL (missing) Result panel 260 Sodium [Moles/volume] in Serum or Plasma 2025-07-12 04:48:07 [facility] 131 mmol/L ( issing) Result panel 261 Potassium [Moles/volume] in Serum or Plasma 2025-07-12 04:48:07 [facility] 4.1 mmol/L ( issing) Result panel 262 Chloride [Moles/volume] in Serum or Plasma 2025-07-12 04:48:07 [facility] 99 mmol/L ( issing) Result panel 263 Carbon dioxide, total [Moles/volume] in Serum or Plasma 2025-07-12 04:48:07 [facility] 26 mmol/L (miss ing) Result panel 264 Urea nitrogen [Mass/volume] in Serum or Plasma 2025-07-12 04:48:07 [facility] 27 mg/dL (critical access hospital) Result panel 265 Creatinine [Mass/volume] in Serum or Plasma 2025-07-12 04:48:07 [facility] 1.12 mg/dL (critical access hospital) Result panel 266 Glomerular filtration rate (GFR) estimation 2025-07-12 04:48:07 [facility] > 60 mL/min (missing) (missing) Result panel 267 BUN/creatinine ratio 2025-07-12 04:48:07 [facility] 24. 1 (missing) (missing) Result panel 268 Glucose [Mass/volume] in Serum or Plasma 2025-07-12 04:48:07 [facility] 111 mg/dL (critical access hospital) Result panel 269 Calcium [Mass/volume] in Serum or Plasma 2025-07-12 04:48:07 [facility] 10.3 mg/dL (critical access hospital) Result panel 270 Basophils Absolute Auto 2025-07-12 05:08 [facility] 0 /ul (missing) Basophils Percent Auto 2025-07-12 05:[address] [place] [address] 0.2 % (missing) White Blood Cell Count 2025-07-12 05:[address] [place] [address] 11.1 x10 3/ul (missing) Hemoglobin 2025-07-12 05:[address] [place] [address] 12.7 g/dl (missing) Monocytes Percent Auto 2025-07-12 05:[address] [place] [address] 14.3 % (missing) Monocytes Absolute Auto 2025-07-12 05:[address] [place] [address] 160 0 /ul (missing) Lymphocytes Percent Auto 2025-07-12 05:08 [facility] 17 .3 % (missing) Lymphocytes Absolute Auto 2025-07-12 05:[address] [place] [address] 1 900 /ul (missing) Red Cell Distribution Width 2025-07-12 05:08 [facility] 20.9 % (missing) Mean Corpuscular Hemoglobin 2025-07-12 05:[address] [place] [address] 27.2 pg (missing) Eosinophils Percent Auto 2025-07-12 05:[address] [place] [address] 3. 8 % (missing) Platelet Count 2025-07-12 05:[address] [place] [address] 303 x1 0 3/ul (missing) Mean Corpuscular HGB Conc 2025-07-12 05:08 [facility] 3 3.5 % (missing) Hematocrit 2025-07-12 05:08 [facility] 37.7 % (missing) Red Blood Cell Count 2025-07-12 05:[address] [place] [address] 4.65 x10 6/ul (missing) Eosinophils Absolute Auto 2025-07-12 05:[address] [place] [address] 4 00 /ul (missing) Neutrophils Percent Auto 2025-07-12 05:[address] [place] [address] 64 .4 % (missing) Neutrophils Absolute Auto 2025-07-12 05:[address] [place] [address] 7 100 /ul (missing) Mean Corpuscular Volume 2025-07-12 05:[address] [place] [address] 81. 2 fl (missing) Result panel 271 Estimated Glomerular Filt Rate 2025-07-12 05:[address] [place] [address] > 60 ml/min Reported eGFR is based the CKD-EPI 2020 equation that does not use a race coefficient. An eGFR below 60 mL/min/1.73m2 suggests that some kidney damage has occurred, and indicative of chronic kidney disease if persisting greater than 3 months. An eGFR less than 15 is indicative of kidney failure. Creatinine 2025-07-12 05:[address] [place] [address] 1.12 mg/dl (missing) Calcium 2025-07-12 05:[address] [place] [address] 10.3 mg/dl (missing) Glucose 2025-07-12 05:[address] [place] [address] 111 mg/dl (missing) Sodium 2025-07-12 05:[address] [place] [address] 131 mmol/l (missing) BUN Creatinine Ratio 2025-07-12 05:[address] [place] [address] 24.1 (missing) (missing ) Carbon Dioxide 2025-07-12 05:[address] [place] [address] 26 mm ol/l (missing) Blood Urea Nitrogen 2025-07-12 05:[address] [place] [address] 27 mg/dl (missing ) Potassium 2025-07-12 05:[address] [place] [address] 4.1 mmol/l (missing) Chloride 2025-07-12 05:[address] [place] [address] 99 mmol/l (missing) Result panel 272 NUCLEATED RED BLOOD CELLS AUTO 2025-09-17 19:05 [facility] 0.0 /100wbc (missing) NRBC ABSOLUTE COUNT (AUTO) 2025-09-17 19:[address] [place] [address] 0.00 x10 3/ul (missing) BASOPHILS # (AUTO) 2025-09-17 19:05 [facility] 0.1 10 3/ul (missing) EOSINOPHILS # (AUTO) 2025-09-17 19:[address] [place] [address] 0.4 10 3/ul (missing) BILIRUBIN,TOTAL 2025-09-[address] [place] [address] 0.6 mg/dl As of April 2023 testing method has changed, this may include reference ranges. MONOCYTES # (AUTO) 2025-09-[address] [place] [address] 0.7 10 3/ul (missing) ALBUMIN/GLOBULIN RATIO 2025-09-[address] [place] [address] 1.1 (missing) (missing) INR 2025-09-[address] [place] [address] 1.1 (missing) Oral Anticoagulant Indication INR range Venous Thrombosis, P.E. 2.0 - 3.0 Mechanical Valve 2.5 - 3.5 LYMPHOCYTES # (AUTO) 2025-09-[address] [place] [address] 1.2 10 3/ul (missing) CREATININE 2025-09-[address] [place] [address] 1.2 mg/dl As of April 2023 testing method has changed, this may include reference ranges. CALCIUM 2025-09-[address] [place] [address] 10.9 mg/dl As of April 2023 testing method has changed, this may include reference ranges. CHLORIDE 2025-09-[address] [place] [address] 100 mmol/l As of April 2023 testing method has changed, this may include reference ranges. WHITE BLOOD COUNT 2025-09-[address] [place] [address] 11.4 x10 3/ul (missing) ALT ALANINE AMINOTRANSFERASE 2025-09-[address] [place] [address] 12 iu/l As of April 2023 testing method has changed, this may include reference ranges. PT - PROTHROMBIN TIME 2025-09-[address] [place] [address] 12.6 secs (missing) HGB - HEMOGLOBIN 2025-09-[address] [place] [address] 13.1 g/dl (missing) SODIUM 2025-09-[address] [place] [address] 131 mmol/l (missing) RED CELL DISTRIBUTION WIDTH 2025-09-[address] [place] [address] 15.4 % (missing) GLUCOSE 2025-09-[address] [place] [address] 162 mg/dl As of April 2023 testing method has changed, this may include reference ranges. AST ASPARTATE AMINOTRANSFERASE 2025-09-[address] [place] [address] 17 iu/l As of April 2023 testing method has changed, this may include reference ranges. CARBON DIOXIDE - CO2 2025-09-[address] [place] [address] 23 mmol/l As of April 2023 testing method has changed, this may include reference ranges. PLT - PLATELET COUNT 2025-09-[address] 274 10 3/ul (missing) GLOBULIN 2025-09-[address] 3.6 g/dl (missing) BUN - BLOOD UREA NITROGEN 2025-09-[address] [place] [address] 30 mg/dl As of April 2023 testing method has changed, this may include reference ranges. MEAN CORPUSCULAR HEMOGLOBIN 2025-09-[address] [place] [address] 30.4 pg (missing) MEAN CORPUSCULAR HGB CONC 2025-09-[address] [place] [address] 32.9 g/dl (missing) HCT - HEMATOCRIT 2025-09-[address] [place] [address] 39.8 % (missing) ALBUMIN 2025-09-[address] [place] [address] 4.0 g/dl As of April 2023 testing method has changed, this may include reference ranges. POTASSIUM 2025-09-[address] [place] [address] 4.2 mmol/l As of April 2023 testing method has changed, this may include reference ranges. RED BLOOD COUNT 2025-09-[address] [place] [address] 4.31 10 6/ul (missing) GFR - MDRD 2025-09-[address] [place] [address] 58 (missing) The IDMS-traceable MDRD Study Equation has been validated extensively in and populations between the ages of 18 and 70 with impaired kidney function (eGFR < 60 mL/min/1.73m2) and has shown good performance for patients with all common causes of kidney disease. Although this equation has not been validated for patients older than 70, an MDRD-derived eGFR may still be a useful tool for providers caring for patients older than 70. References: http://www.nkdep.[place].gov/lab-evaluat ion/gfr/creatinine -stand ardization, last updated December 2011. TOTAL PROTEIN 2025-09-[address] [place] [address] 7.6 g/dl As of April 2023 testing method has changed, this may include reference ranges. ALKALINE PHOSPHATASE 2025-09-[address] [place] [address] 74 iu/l As of April 2023 testing method has changed, this may include reference ranges. ANION GAP 2025-09-[address] [place] [address] 8.0 (missing) (missing) MEAN PLATELET VOLUME 2025-09-17 19:05 [facility] 8.8 fl (missing) NEUTROPHILS # (AUTO) 2025-09-17 19: [facility] 8.9 10 3/ul (missing) MEAN CORPUSCULAR VOLUME 2025-09-17 19:05 [facility] 92.3 fl (missing) Social History date description facility 2025-07-06 00:00 Never smoked tobacco (finding) [facility] 2025-07-07 00:00 Never smoked tobacco (finding) [facility] Vital Signs date measurement value units 2025-07-06 [...]
[2025-09-17] MEDS ORDERED: ONDANSETRON 4 MG/2 ML VIAL IVP PRN (23:22)
[2025-09-18] MEDS: ACETAMINOPHEN 325 MG TABLET PO PRN (00:29)
[2025-09-18] MEDS: SODIUM CHLORIDE FLUSH 0.9% 10 ML SYRINGE IVP PRN (00:29)
[2025-09-18] MEDS: SODIUM CHLORIDE FLUSH 0.9% 10 ML SYRINGE IVP SCH (00:33)
[2025-09-18] MEDS: HYDROcod/ACETAM 5/325 MG TABLET PO PRN (04:18)
[2025-09-18] MEDS: HYDROmorphone 0.5 MG/0.5 ML SYRINGE IVP PRN (05:56)
[2025-09-18] MEDS ORDERED: BUDESONIDE 0.5 MG/2 ML NEB INH SCH (07:00)
[2025-09-18] MEDS ORDERED: FORMOTEROL FUMARATE NEB 20 MCG/2 ML INH SCH (07:00)
--- NOTE | 2025-09-18 07:37 | PROVIDER PROGRESS NOTE ---
Subjective Prog Note Date Prog Note Date: 09/18/25 Prog Note Time: 07:33 Subjective Pt reports feeling: Improved Subjective: Laila is an 84yo AMAB who uses she/her pronouns, with an extensive medical history c/c of L chest pain after what was relate to be a mechanical fall from standing w/o LOC. Pt denies any syncope/near syncope preceding this event or recently, any recent or current CP, SOA, subjective fevers/rigors/myalgias, dysuria, NVD, hematochezia, melena, hematuria, and relates that she fell because she "hasn't been picking her feet up enough" and tripped on a rug. Pt denied any neck pn or head pain, and relates she did not hit her head and didn't lose consciousness, but went to bed right after the event and then was unable to get out of bed after. Pt lives at home in a [facility] and has home health care nurses (timi felix), and a niece that stops in and sees her 2x day and helps with meals. She relates the niece is his DPOA, but is unsure whether paperwork has been filled out to this point. We will work on clarifying this with niece. She relates she does want to be DNR, and thinks she has a POLST at home. Will also work on getting this in. Pt relates her pain is 8/10 today, especially with episodes of singultus during meals. Pt denies any abd pain, paresthesias/numbness, and relates she usually gets around the property and goes for walks without excessive exercise intolerance when the weather is nicer. Pt medical hx includes colon CA with partial colon resection, septicemia within the last year, actute prostatitis and BPH, severe Covid with possible ARDS and coma, Afib, HTN, GERD, and HLD. Pt also relates she had been having a decreased appetite x3-4 days, and describes "blackout episodes" in the last year that she had brought up with his PCP and did not know what the diagnosis was or what she was being treated with for this complaint. Current Medications Current Medications Current Medications: Current Medications Generic Name Dose Route Start Last Admin Trade Name Freq PRN Reason Stop Dose Admin Acetaminophen 650 mg 09/17/25 23:22 09/18/25 00:29 Acetaminophen 325 Mg Tablet PO 650 mg Q4HR PRN Administration Pain 1 to 4, or Fever Hydrocodone Bitart/Acetaminophen 1 tab 09/17/25 23:22 09/18/25 04:18 Hydrocod/Acetam 5/325 Mg Tablet PO 1 tab Q4HR PRN Administration Pain 5 to 7 Apixaban 2.5 mg 09/18/25 09:00 Apixaban 2.5 Mg Tablet PO BID [facility] Atenolol 50 mg 09/18/25 09:00 Atenolol 25 Mg Tablet PO DAILY [facility] Budesonide 0.5 mg 09/18/25 07:00 Budesonide 0.5 Mg/2 Ml Neb INH RTBID [facility] Formoterol Fumarate 20 mcg 09/18/25 07:00 Formoterol Fumarate Neb 20 Mcg/2 Ml INH RTBID [facility] Hydromorphone HCl 0.2 mg 09/17/25 23:22 09/18/25 05:56 Hydromorphone 0.5 Mg/0.5 Ml Syringe IVP 0.2 mg Q4H PRN Administration Pain 8 to 10 Ondansetron HCl 4 mg 09/17/25 23:22 Ondansetron 4 Mg/2 Ml Vial IVP Q6HR PRN Nausea / Vomiting Sodium Chloride 10 ml 09/17/25 23:22 09/18/25 00:29 Sodium Chloride Flush 0.9% 10 Ml Syringe IVP 10 ml PRN PRN Administration NEEDED PER PROVIDER ORDERS Sodium Chloride 10 ml 09/18/25 01:00 09/18/25 00:33 Sodium Chloride Flush 0.9% 10 Ml Syringe IVP Not Given 0100,0900,1700 [facility] Tamsulosin HCl 0.4 mg 09/18/25 09:00 Tamsulosin 0.4 Mg Capsule PO DAILY [facility] Objective Vital Signs/Intake & Output Reviewed Vital Signs: Yes Vital Signs: Vital Signs x48h Temp Pulse Resp BP Pulse Ox 09/18/25 02:32 36.4 C L 76 20 111/68 97 Intake & Output: Intake & Output 09/15/25 09/16/25 09/17/25 09/18/25 23:59 23:59 23:59 23:59 Weight (kg) 79 kg Objective General Appearance: positive Alert and Mild distress (In pain with hiccups, otherwise tolerating sitting and eating and talking without significant distress. ) Eyes Bilateral: positive Normal inspection and PERRL Neck: positive Nml inspection Respiratory: positive No respiratory distress and Breath sounds nml Cardiovascular: positive No murmur and Irregularly irregular (Irreg irreg with good corresponding pulse, in the setting of Afib. ); negative Regular rate & rhythm Abdomen: positive Non-tender, Nml bowel sounds and No distention; negative Tenderness Skin: positive Color nml, No rash and Warm Extremities: positive Non-tender and No pedal edema Neurologic/Psychiatric: positive Oriented x3 Lab Results 09/17/25 19:05 09/17/25 19:05 Other Labs: Lab Results x24hrs 09/17/25 Range/Units 19:05 WBC 11.4 H (4.8-10.8) x10^3/uL RBC 4.31 L (4.70-6.10) 10^6/uL Hgb 13.1 L (14.0-18.0) g/dL Hct 39.8 L (42.0-52.0) % MCV 92.3 (80.0-94.0) fL MCH 30.4 (27.0-31.0) pg MCHC 32.9 (32.0-36.0) g/dL RDW 15.4 H (12.0-15.0) % Plt Count 274 (130-450) 10^3/uL MPV 8.8 (7.4-11.4) fL Neut # (Auto) 8.9 H (1.5-6.6) 10^3/uL Lymph # (Auto) 1.2 L (1.5-3.5) 10^3/uL Grundy # (Auto) 0.7 (0.0-1.0) 10^3/uL Eos # (Auto) 0.4 (0.0-0.7) 10^3/uL Baso # (Auto) 0.1 (0.0-0.1) 10^3/uL Absolute Nucleated RBC 0.00 x10^3/uL Nucleated RBC % 0.0 /100WBC PT 12.6 (9.9-12.6) secs INR 1.1 (0.8-1.2) Sodium 131 L (135-145) mmol/L Potassium 4.2 (3.5-4.5) mmol/L Chloride 100 L (101-111) mmol/L Carbon Dioxide 23 (21-32) mmol/L Anion Gap 8.0 (6-13) BUN 30 H (6-20) mg/dL Creatinine 1.2 (0.6-1.3) mg/dL Estimated GFR (MDRD) 58 L (>89) Glucose 162 H (74-104) mg/dL Calcium 10.9 H (8.5-10.3) mg/dL Total Bilirubin 0.6 (0.2-1.0) mg/dL AST 17 (10-42) IU/L ALT 12 (10-60) IU/L Alkaline Phosphatase 74 (42-121) IU/L Total Protein 7.6 (6.4-8.9) g/dL Albumin 4.0 (3.2-5.5) g/dL Globulin 3.6 (2.1-4.2) g/dL Albumin/Globulin Ratio 1.1 (1.0-2.2) Diagnostic Imaging Diagnostic Imaging Results: positive Final report reviewed and Read independently Assessment/Plan Problem List (1) Fracture of rib: Impression: Hospital day 2 Condition: Acute non displaced left 7th to 9th ribs fractures after mechanical fall from standing. Imaging also reported chronic left-sided rib fracture deformities on the left side, and no acute long contusion or hemo/pneumothorax. Pt had denied any syncopal or weakness quality to the preceding moments, and related she had tripped on a rug. Pt relates these are painful, 8/10 today, and worse with movement and singultus. No flail segment identified with this non-displaced fracture, as there are no consecutive displaced segments, but will continue to monitor for flail development, as well as for developing lung contusion sequelae. STUMBL score of 26 --> 80% risk of complications. Consult surgery. No disability in chest expansion or increased respiratory effort. Assistance: Diagnostic imaging, surgery consultation, pain management medication, PT consultation Risk: Flail development, lung contusion and respiratory distress secondary to lung parenchymal injury or occult hemo/pneumothorax. Monitor: Pain levels, respiratory status, vital signs Evaluate: Response to pain management. Assess/add: Assess for add-on CXR if additional or dynamic changes in pathology. Treat: Alton 5/325 1 tab PO Q4hr PRN. Qualifiers: Encounter type: initial encounter Fracture type: closed Laterality: l eft Rib fracture type: multiple ribs Qualified Code(s): S22.42XA - Multiple fractures of ribs, left side, initial encounter for closed fracture (2) Atrial fibrillation: Impression: Pt had related mechanical fall in the setting of Afib and relates episodes of "blacking out". Cannot rule out syncope based on history and multiple PVC's on her EKG. Based on inability to r/o symptomatic status of arrhythmia, believe telemetry monitoring may be indicated in this setting, and will discuss risk/benefit of TTE. Pt is adequately anticoagulated with 2.5mg PO BID, continuing this treatment forward through her stay. PCP may need to reconsider anticoagulation status due to high fall-risk (Schroeder score 80). Pt additionally relates she does become out of breath or fatigued when she "moves around too fast", but unk what degree of exercise intolerance this may actually represent. Cursory scoring on NYHA grades her as Class 2 HF in the setting of longstanding hx of Afib, HLD, and HTN. BNP is also elevated on 03/28 at 921 and Troponin was 32.3. Will consider adding these markers on today for follow up and dx guidance. Pt has no notable JVD, rales, or peripheral edema. Rate control maintained by her BB in the context of HTN hx, Bisoprolol fumarate 5mg PO/day. Orders are currently in for Atenolol at 50 mg PO/day, will confirm with medical team this change. Pending HF considerations, may indicate to start on GDMT in outpatient setting or modify rate control agent. Monitor: Monitor HR and other VS during her course of stay. Monitor for any changes in syncopal s/s, evaluate risk/benefit for more dedicated work up. Evaluate: Initial EKG showed afib with long hx of same, and numerous PVCs, unk hx. Assess/add: Consider telemetry, TTE, 6MWD for further HF dx. Treat: Continue home dosages of Apixaban 2.5mg PO BID, Bisoprolol -->Atenolol 50mg PO/day. Qualifiers: Atrial fibrillation type: unspecified chronic Qualified Code(s): I48.20 - Chronic atrial fibrillation, unspecified (3) Head trauma: Impression: Pt had initially related to receiving ER staff that she did not think he hit his head, and did not endorse C-Spine pain. NEXUS negative. Due to active anticoagulation on Eliquis, head imaging was obtained which was reassuring and showed no acute changes indicating an acute bleed. Retaining this in problem list so we can continue to monitor for any pupillary, vital sign, or mentation changes indicative of a increased consideration of a slow subdural hematoma. Monitor: Deterioration in patient condition consistent with subdural hematoma or concussive syndrome. Evaluate: Clear imaging yesterday, will continue to assess for f/u need. Assess/add: Follow course for deterioration Treat: none at this time Qualifiers: Encounter type: initial encounter Qualified Code(s): S09.90XA - Unspecified injury of head, initial encounter (4) Fall: Impression: Pt had related mechanical fall in the setting of Afib and relates episodes of "blacking out". Cannot rule out syncope based on history and multiple PVC's on her EKG. Based on inability to r/o symptomatic status of arrhythmia, believe telemetry monitoring may be indicated in this setting, and will discuss risk/benefit of TTE. Pt is adequately anticoagulated with 2.5mg PO BID, continuing this treatment forward through her stay. PCP may need to reconsider anticoagulation status due to high fall-risk (Schroeder score 80). See above tx plans for rib fxs and Afib. Monitor: Monitor for high fall risk factors during course of stay. Evaluate: PT evaluation today for ambulatory need Assess/add: Further measures pending PT results. Treat: No specific tx at this time. Qualifiers: Encounter type: initial encounter Qualified Code(s): W19.XXXA - Unspecified fall, initial encounter (5) Leukocytosis: Impression: Pt has a slightly elevated WBC of 11.4 at time of admission, with no clear infxn source or infective s/s. Pt has been afebrile, denies dysuria, flank or suprapubic pain, cough, rigors, or chills. Monitor: Monitor WBC and infectious s/s, changes in VS Qualifiers: Leukocytosis type: other Qualified Code(s): D72.828 - Other elevated white blood cell count (6) HTN (hypertension): Impression: Pt continues to be hypertensive <180 without end-organ symptoms in the setting of long hx of HTN and acute painful injury. Assess for continuation of home dosage of Bisoprolol or continue hospital order of Atenolol. Qualifiers: Hypertension type: unspecified Qualified Code(s): I10 - Essential (primary) hypertension (7) HLD (hyperlipidemia): Impression: Relayed hx but no lipid results available for review. Pt home meds include intensive dose statin Lipitor 80mg PO QPM, does not seem to be included in his tx during this stay, will wait to confirm med req to carryover dosing. Can consider ordering lipid panel in this setting. Qualifiers: Hyperlipidemia type: unspecified Qualified Code(s): E78.5 - Hyperlipidemia, unspecified (8) BPH (benign prostatic hyperplasia): Impression: Longstanding hx of same, purportedly well-controlled with Tamsulosin 0.4mg PO/day carrying over during admission, and a history of episodic bacterial prostatitis which was managed successfully with penicillin. Pt urine void status is related by pt as being sufficient during her stay, reporting multiple voids, but none is recorded in her I/O summary at this time. Pt denies any dysuria, chills, abdominal or suprapubic tenderness, perineal tenderness or discomfort, hematuria, or new flank pain other than the acute L rib fxs, which is localized to include the left CVA, occluding true CVA tenderness r/o. Qualifiers: Lower urinary tract symptom presence: unspecified whether lower urinary tract symptoms present Qualified Code(s): N40.0 - Benign prostatic hyperplasia without lower urinary tract symptoms (9) Incidental pulmonary nodule, > 3mm and < 8mm: Impression: Pt was noted as having a 7mm, incidental pulmonary nodule in the RLL, stable in size since previous CT 03/28. If nodule becomes greater than 8mm during future surveillance, future management will be indicated by ACCP estimated probability of malignancy. For now, yearly or q18-24 month low-dose CT surveillance may be indicated in outpt management setting, based on nodule size of 6-7mm. (10) Chronic obstructive pulmonary disease (COPD): Impression: Hx of COPD in the setting of previous Covid with possible ARDS and previous CAP. Pt seems to be currently well-controlled on Symbicort 160/4.5 Pt has denied any respiratory symptoms, cough, or SOA, and LCTAB. Qualifiers: COPD type: unspecified COPD Qualified Code(s): J44.9 - Chronic obstructive pulmonary disease, unspecified
[2025-09-18] MEDS: APIXABAN 2.5 MG TABLET PO SCH (09:05)
[2025-09-18] MEDS: TAMSULOSIN 0.4 MG CAPSULE PO SCH (09:06)
[2025-09-18] MEDS ORDERED: KETOROLAC 15 MG/ML VIAL IVP PRN (11:02)
[2025-09-18] MEDS ORDERED: DICLOFENAC SODIUM 1% GEL 50 GM TUBE TOP PRN (11:28)
--- NOTE | 2025-09-18 11:57 | XRAY Report ---
PROCEDURE: XR Chest 1V INDICATIONS: F/U rib fracture TECHNIQUE: One view of the chest was acquired. COMPARISON: CT chest 09/17/2025 FINDINGS: Surgical changes and devices: None. Lungs and pleura: Trace blunting of the left costophrenic angle unchanged likely minimal effusion. No consolidation. No pneumothorax. Mediastinum: Mediastinal contours appear normal. Heart size is normal. Bones and chest wall: No suspicious bony lesions. Overlying soft tissues appear unremarkable. Left rib fractures again noted without gross change. They are better characterized on prior CT. IMPRESSION: Gross stable appearance of left-sided rib fractures. Trace left effusion. Reviewed by: Claudia Walters MD on 09/18/2025 11:54 AM [facility] Approved by: Claudia Walters MD on 09/18/2025 11:54 AM [facility] Station ID: [id number]
--- NOTE | 2025-09-18 12:26 | PHARMACY PROGRESS NOTE ---
Best Possible Medication History Admit Date and Time: 09/17/25 [id number] Home Medications Medication Instructions Recorded Confirmed Type budesonide-formoterol HFA 80 1 inh inhalation BID #10. 2 grams 03/28/25 09/18/25 Rx mcg-4.5 mcg/actuation aerosol inhaler tamsulosin 0.4 mg capsule (Flomax) 0.4 mg PO DAILY #60 caps 03/28/25 09/18/25 Rx apixaban 2.5 mg tablet (Eliquis) 2.5 mg PO BID #120 ta bs 04/07/25 09/18/25 Rx acetaminophen 500 mg tablet 1,000 mg (2 x 500 mg) PO T ID 7 09/18/25 Rx (Tylenol Extra Strength) days #42 tabs amlodipine 5 mg tablet 5 mg PO DAILY 09/18/2509/18 History diclofenac sodium 1 % topical gel 2 g topical QID PRN Mild Pain 09/18/25 Rx (Arthritis Pain (diclofenac)) (Level 1-3) 30 days #100 grams furosemide 20 mg tablet (Lasix) 20 mg PO BID 09/18/25 09/18/25 History lidocaine 4 % topical patch 1 patch topical DAILY 30 d ays #30 09/18/25 Rx ea metoprolol succinate 25 mg 25 mg PO DAILY 09/18/2504/07 History tablet,extended release 24 hr oxycodone 5 mg tablet 5 mg PO Q4HR PRN Moderate Pa in 09/18/25 Rx (Level 4-6) #20 tabs Processed by: Pharmacy Medications reviewed in ED?: No Medication History completed: Yes Patient Interview: Pt unable to participate Secondary Source(s): Other family member, Pharmacy records and Insurance records [facility] Statement: As the person ultimately responsible for medication therapy, providers are able to order a medication from an existing home medication list in [facility] via the "Reconcile Routine" prior to Confirmation of that medication by client support manager. Such practice is discouraged except when the physician, in their clinical judgment, deems that a medical need exists for a medication without regard to previous use.
[2025-09-18] MEDS: oxyCODONE 5 MG TABLET PO PRN (12:50)
--- NOTE | 2025-09-18 12:54 | Discharge Summary ---
<Statement entered by Ezekiel Acosta DNP - 09/18/25 19:03> Patient was seen and examined by me with a separate encounter after being seen by FOZIA student. I reviewed the student's documentation including patient history, physical examination, laboratory, imaging, clinical assessment and treatment plan. I have discussed the management of the patient with the student, and with the patient. There are no changes. Briefly, patient was admitted for rib fractures. Follow-up chest x-ray shows no pneumothorax. Patient is being discharged home with home health PT referral. I have discharged the patient with multimodal pain management including Tylenol, lidocaine, Voltaren gel, low-dose oxycodone. I discussed the case with the on- call general surgeon, who was in agreement. Aggressive pulmonary toilet encouraged Discharge Summary Admit Date: 09/17/25 Discharge Date: 09/18/25 Discharging Provider: JEFFERY Menjivar Primary Care Provider: Santa Dillon Code Status: Attempt Resuscitation (Verbal DNR, do not have filed POLST yet. ) Discharge Facility [facility]: [facility] DIAGNOSES Admission Diagnoses: (1) Fracture of rib (2) Atrial fibrillation (4) Fall Discharge Diagnoses with Status of Each Condition: Rib fx: Pn managed in IP, will write for continued multi-modal therapy for OP management. Afib: Stil present, chronic issue, still medically controlled Fall: mechanical, rul out imaging performed. HPI History of Present Illness: Laila is an 84yo AMAB who uses she/her pronouns, jo Brenner, with an extensive medical history c/c of L chest pain after what was related to be a mechanical [id number] from standing w/o LOC. In the ER, CT head, neck, chest were all acquired and demonstrated x3 contiguous L rib fractures, 7th -9th, with no evidence of pulmonary contusion, pneumothorax, hemothorax, or pleural insult. Solitary incidental pulmonary nodule in RLL ~7mm noted, and pt should follow up with PCP for appropriate surveillance schedule. Pt denies any syncope/near syncope preceding this event or recently, any recent or current CP, SOA, subjective fevers/rigors/myalgias, dysuria, NVD, hematochezia, melena, hematuria, and relates that she fell because she "hasn't been picking her feet up enough" and tripped on a rug. Pt denied any neck pn or head pain, and relates she did not hit her head and didn't lose consciousness, but went to bed right after the event and then was unable to get out of bed after. Pt lives at home in a gray courter trailer and has home health care nurses (timi felix), and a niece that stops in and sees her 2x day and helps with meals. She relates the niece is her DPOA, but is unsure whether paperwork has been filled out to this point. We will work on clarifying this with niece. She relates she wants to be DNR, but unk POLST status. Will direct niece to [place] back with pt's PCP to see about scanning DPOA and POLST into patient's record. Pt relates her pain is 8/10 today, especially with episodes of singultus during meals. Pt denies any abd pain, paresthesias/numbness, and relates she usually gets around the property and goes for walks without excessive exercise intolerance when the weather is nicer. Pt medical hx includes colon CA with partial colon resection, septicemia within the last year, actute prostatitis and BPH, severe Covid with possible ARDS and coma, Afib, HTN, GERD, and HLD. Pt also relates she had been having a decreased appetite x3-4 days, and describes "blackout episodes" in the last year that she had brought up with his PCP and did not know what the diagnosis was or what she was being treated with for this complaint. CONSULTS | PROCEDURES Consultations: ER, Radiology, GenSurg Procedures: None HOSPITAL COURSE Hospital Course: Pt was admitted under intractable pain criteria and further surg consideration in the setting of 3 continuous, non-displaced, L sided rib fractures. No other salient acute medical issues or contributing conditions have been specifically worked up this visit. Hospital Course: The patient was admitted following blunt thoracic trauma resulting in non- displaced rib fractures, confirmed by chest imaging. No evidence of associated pneumothorax, hemothorax, or visceral injury was found. The patient remained hemodynamically stable throughout admission. Pain Management: A multimodal analgesic regimen was initiated, including scheduled acetaminophen and NSAIDs. Opioids were reserved for breakthrough pain. No regional anesthesia was required. Pain was well controlled, allowing for effective pulmonary hygiene and early mobilization. Pulmonary Care: The patient was encouraged to use incentive spirometry and participate in physiotherapy to prevent atelectasis and pneumonia.No respiratory compromise occurred during hospitalization. Complications: No acute complications developed. The patient did not require intubation or ICU care. Discharge Condition: The patient is stable, ambulating independently, and tolerating oral intake. Pain is controlled with oral medications. No supplemental oxygen is required. Objective General Appearance: positive Alert and Mild distress (In pain with hiccups, otherwise tolerating sitting and eating and talking without significant distress. ) Eyes Bilateral: positive Normal inspection and PERRL Neck: positive Nml inspection Respiratory: positive No respiratory distress and Breath sounds nml Cardiovascular: positive No murmur and Irregularly irregular (Irreg irreg with good corresponding pulse, in the setting of Afib. ); negative Regular rate & rhythm Abdomen: positive Non-tender, Nml bowel sounds and No distention; negative Tenderness Skin: positive Color nml, No rash and Warm Extremities: positive Non-tender and No pedal edema Neurologic/Psychiatric: positive Oriented x3 Diagnostic Imaging Diagnostic Imaging Results: positive Final report reviewed and Read independently ALLERGIES Allergies Allergy/AdvReac Type Severity Reaction Status Date / Time No Known Drug Allergies Allergy Verified 07/06/25 13:23 MEDICATIONS Ambulatory Orders Medication Instructions Recorded Confirmed budesonide-formoterol HFA 80 1 inh inhalation BID #10. 2 grams 03/28/25 09/18/25 mcg-4.5 mcg/actuation aerosol inhaler tamsulosin 0.4 mg capsule (Flomax) 0.4 mg PO DAILY #60 caps 03/28/25 09/18/25 apixaban 2.5 mg tablet (Eliquis) 2.5 mg PO BID #120 ta bs 04/07/25 09/18/25 acetaminophen 500 mg tablet 1,000 mg (2 x 500 mg) PO T ID 7 09/18/25 (Tylenol Extra Strength) days #42 tabs amlodipine 5 mg tablet 5 mg PO DAILY 09/18/2509/18 diclofenac sodium 1 % topical gel 2 g topical QID PRN Mild Pain 09/18/25 (Arthritis Pain (diclofenac)) (Level 1-3) 30 days #100 grams furosemide 20 mg tablet (Lasix) 20 mg PO BID 09/18/25 09/18/25 lidocaine 4 % topical patch 1 patch topical DAILY 30 d ays #30 09/18/25 ea metoprolol succinate 25 mg 25 mg PO DAILY 09/18/2504/07 tablet,extended release 24 hr oxycodone 5 mg tablet 5 mg PO Q4HR PRN Moderate Pa in 09/18/25 (Level 4-6) #20 tabs PHYSICAL EXAM AT DISCHARGE Vital Signs: Vital Signs x48h Temp Pulse Pulse Resp BP Pulse Ox 09/18/25 14:00 98.1 F 67 16 119/70 96 09/18/25 12:03 100 General Appearance: positive Alert and Mild distress (Pain with movement consistent with rib fx) Eyes Bilateral: positive Normal inspection Neck: positive Nml inspection Respiratory: positive No respiratory distress and Breath sounds nml Cardiovascular: positive Irregularly irregular (Per baseline afib) Peripheral Pulses: positive 2+ Abdomen: positive Non-tender, Nml bowel sounds and No distention Skin: positive Color nml, No rash, Warm and Dry Extremities: positive Non-tender and No pedal edema Neurologic/Psychiatric: positive Oriented x3 LABS 09/17/25 19:05 09/17/25 19:05 DIAGNOSTIC IMAGING Diagnostic Imaging Results: Final report reviewed and Read independently SEPSIS Current Stage of Sepsis: Ruled out FOLLOW UP Follow Up: You have been diagnosed with nondisplaced rib fractures. These are broken ribs that have not moved out of place. Most people recover well with proper care at home. Please follow these instructions to help your recovery and prevent complications: * Pain Control:Take your pain medications as prescribed. This may include acetaminophen (Tylenol), NSAIDs (like ibuprofen), and possibly muscle relaxants. Use opioid pain medicine only if needed for severe pain, and follow the instructions carefully. * Breathing Exercises:Use your incentive spirometer (a breathing device) every 1-2 hours while awake. Take deep breaths and cough regularly to keep your lungs clear and help prevent pneumonia. * Activity:Try to move around and walk several times a day. Gentle activity helps prevent lung problems and blood clots. Avoid heavy lifting, strenuous exercise, or contact sports until cleared by your doctor. * Positioning:Sleep in a position that is comfortable for you. Some people find it easier to rest upright or with pillows for support. * Ice and Heat:You may use an ice pack on the injured area for 20 minutes at a time, several times a day, to help with pain and swelling. After a few days, heat packs may help relax sore muscles. * Watch for Problems:Call your doctor or return to the emergency department if you have: * Trouble breathing or shortness of breath * Chest pain that gets worse or is not controlled by medication * Fever, chills, or cough with yellow/green mucus * Blood in your cough or spit * Severe pain, weakness, or confusion * Follow-Up:Schedule a follow-up appointment with your doctor or trauma clinic within 1 week. Most people do not need repeat chest X-rays unless symptoms worsen. * Recovery:Most pain improves over 2-4 weeks, but some discomfort may last longer. If you have ongoing pain or trouble with daily activities after 4 weeks, let your doctor know. * If you have any questions or concerns, please contact your healthcare provider. Following these instructions will help you heal and reduce your risk of complications. TIME SPENT Time Spent in Discharge (Minutes): 31 Discharge Plan Discharge Patient Disposition: 01 Home, Self Care Condition: Good Medically Cleared Date:: 09/18/25 Prescriptions: New acetaminophen [Tylenol Extra Strength] 500 mg Tablet 1,000 mg PO TID 7 Days Qty: 42 0RF diclofenac sodium [Arthritis Pain (diclofenac)] 1 % Gel 2 g topical QID PRN (Reason: Mild Pain (Level 1-3)) 30 Days Qty: 100 0RF lidocaine 4 % Adhesive Patch,Medicated 1 patch topical DAILY 30 Days Qty: 30 0RF oxycodone 5 mg Tablet 5 mg PO Q4HR PRN (Reason: Moderate Pain (Level 4-6)) Qty: 20 0RF Continued tamsulosin [Flomax] 0.4 mg capsule 0.4 mg PO DAILY Qty: 60 0RF budesonide-formoterol 80-4.5 mcg/actuation HFA aerosol inhaler 1 inh inhalation BID Qty: 10.2 2RF Eliquis 2.5 mg tablet 2.5 mg PO BID Qty: 120 0RF No Action metoprolol succinate 25 mg tablet extended release 24 hr 25 mg PO DAILY furosemide [Lasix] 20 mg tablet 20 mg PO BID amlodipine 5 mg tablet 5 mg PO DAILY Activity Restrictions: Activity as Tolerated Diet: Regular Health Concerns: Acute rib fx: Acute non displaced left 7th to 9th ribs fractures after mechanical fall from standing. Imaging also reported chronic left-sided rib fracture deformities on the left side, and no acute long contusion or hemo/pneumothorax. Pt had denied any syncopal or weakness quality to the preceding moments, and related she had tripped on a rug. Pt relates these are painful, 8/10 today, and worse with movement and singultus. No flail segment identified with this non-displaced fracture, as there are no consecutive displaced segments, and repeat CXR was performed to continue to monitor for flail development, as well as for developing lung contusion sequelae. Surgical intervention not indicated at this time. No disability in chest expansion or increased respiratory effort. Assistance: Diagnostic imaging, surgery consultation, pain management medication, PT consultation Risk: Flail development, lung contusion and respiratory distress secondary to lung parenchymal injury or occult hemo/pneumothorax. Treat: [place] 5/325 1 tab PO Q4hr PRN, lidocaine patch, Tylenol (multimodal pain mgmt). Afib: Pt had related mechanical fall in the setting of Afib but does endorse unrelated, nonpreceding episodes of "blacking out". Cannot completely rule out episodic syncope based on Afib hx and multiple PVC's on her EKG. Rate control maintained by her BB in the context of HTN hx, Bisoprolol fumarate 5mg PO/day. We have continued beta blockade with Atenolol 50mg PO/day during hospitalization. Recommend any further workup in outpatient setting. Fall: Pt had related mechanical fall in the setting of Afib.. Evaluate: Home PT evaluation today for ambulatory need Diagnosis:Rib fractures Discharge Instructions: * Pain Management: * Takeacetaminophen 1 gram by mouth three times daily(morning, afternoon, evening) for scheduled pain control. * Applylidocaine patch to the affected area once dailyfor local pain relief. * Usediclofenac gelon the painful area as needed for additional pain control. * Takeoxycodone by mouth as neededfor breakthrough pain, only if pain is not controlled by the above measures. * Avoid exceeding recommended doses and notify your provider if you experience side effects such as nausea, constipation, or confusion. * Pulmonary Care: * Use your incentive spirometer every 1-2 hours while awake.Take 10 slow, deep breaths each session. This helps keep your lungs expanded and reduces the risk of pneumonia and other complications. * Cough regularly and practice deep breathing exercisesto clear secretions and maintain lung function * Activity and Mobilization: * Early mobilization is encouraged.Get out of bed and walk several times daily as tolerated. This helps prevent deconditioning and shortens recovery time. * Home health physical therapy referralis placed to assist with safe mobilization, breathing exercises, and recovery. * Other Instructions: * Avoid heavy lifting and strenuous activity until cleared by your provider. * Monitor for signs of complications: increasing shortness of breath, fever, chest pain, or inability to control pain with prescribed medications. Seek medical attention if these occur. * Follow up with your primary care provider or trauma clinic as scheduled. Medication Summary: * Acetaminophen 1g PO TID (scheduled) * Lidocaine patch daily (scheduled) * Diclofenac gel topical (as needed) * Oxycodone PO (as needed for breakthrough pain) Referral: * Home health physical therapy for mobility and pulmonary rehabilitation. Please call your PCP to schedule follow up appointment Print Language: Polish Patient Instructions: Incentive Spirometer Dc, ED Rib Fracture Stand Alone Forms: PCP List Follow-up Care: Santa Dillon FNP [Primary Care Provider, Family Practice] Vitals documented within 30 minutes of discharge?: Yes
[2025-09-18] MEDS: ACETAMINOPHEN 500 MG TABLET PO SCH (14:23)
[2025-09-18 14:36] VITALS: BP 119/70; TEMP 98.1; O2SAT 96
== END 2025-09-18 14:25 | disposition home or self-care (01) | DRG 185 ==
LOC: ED 18:49 → MS2 22:25
PROVIDERS: ADMIT Internal Medicine; ATTEND Internal Medicine